=== PATIENT | female | born 1960 | race Caucasian/White ===

== ENCOUNTER 2020-10-20 13:27 | Outpatient (REF) | payer MEDICAID, SELFPAY ==
--- NOTE | ~2020-10-20 | MM_ITS ---
EXAMINATION: MM DIAGNOSTIC DIGITAL BREAST TOMOSYNTHESIS, BILATERAL CLINICAL INFORMATION: Due for yearly. Also follow-up asymmetric density lower left breast initially noted at baseline exam. The lifetime risk of breast cancer based on the Tyrer-Cuzick Model is 5%. COMPARISON: Mammography: 08/19/2019, 01/23/2019, 05/17/2018, 05/02/2018 (baseline, BI-RADS 0). TECHNIQUE: Digital breast tomosynthesis is performed in both the craniocaudal and mediolateral oblique views along with computer-aided detection (CAD). Synthesized 2D images are generated from the tomosynthesis. FINDINGS: There are scattered areas of fibroglandular density (ACR BI-RADS breast composition Category b). There is fibronodular parenchymal pattern with scattered bilateral asymmetries similar to prior studies. There is no developing density or interval mass or architectural abnormality. The area of follow-up inferior left breast in MLO view is stable to less conspicuous since initial baseline imaging. No abnormal calcifications. The axilla and skin contours are unremarkable. Results are provided to the patient at time of visit by the technologist. MM/MM tomosynthesis diagnostic BI IMPRESSION: No significant changes from prior exams. ASSESSMENT: BI-RADS 2: Benign RECOMMENDATION: Routine annual mammography screening. This patient's information was entered into a reminder system with a target due date for their next mammogram.
== END 2020-10-20 13:28 | disposition home or self-care (01) ==
LOC: HO.MAMMO 13:27
PROVIDERS: PCP Internal Medicine; Visit Provider Internal Medicine
DX: R92.2 Inconclusive mammogram (principal)
CPT/HCPCS: 77062; 77066

== ENCOUNTER 2022-06-14 09:23 | Emergency (ER) | payer MEDICAID, SELFPAY ==
--- NOTE | ~2022-06-14 | CT_ITS ---
EXAMINATION: CT ABDOMEN AND PELVIS WITHOUT CONTRAST CLINICAL INFORMATION: Abdominal pain and hematuria. Kidney stones? COMPARISON: Abdomen ultrasound from 11/18/2019 TECHNIQUE: Multidetector volumetric imaging was performed from the superior aspect of the liver through the pubic symphysis. Sagittal and coronal reformatted images were obtained on the technologist's workstation. This CT examination was performed using dose optimization techniques as appropriate, variously including the following: *Automated exposure control *Adjustment of mA and/or kV according to patient size (this includes techniques or standardized protocols for targeted exams where dose is matched to indication/reason for exam; i.e. extremities or head) *Use of iterative reconstruction technique DLP: 658 mGy-cm FINDINGS: LUNG BASES: No pulmonary consolidation or pleural effusion. Coronary artery and thoracic aorta atherosclerotic calcification. LIVER: The liver has normal size, shape, and attenuation. No evidence of liver mass. GALLBLADDER AND BILIARY TREE: Gallbladder is without radiopaque stones, wall thickening or pericholecystic fluid. No dilated bile ducts. PANCREAS: Normal. No edema, pancreatic ductal dilatation or mass. SPLEEN: Normal. ADRENAL GLANDS: Normal. KIDNEYS AND URETERS: Kidneys are normal in size. 1 cm cyst of the lateral right kidney has a simple appearance on these noncontrast images. It was visualized on the ultrasound exam from 11/18/2019. No renal imaging follow-up is recommended for a simple cyst. 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 There are punctate calcifications of the kidneys. No large renal stone. No ureteral calculi, hydronephrosis or perinephric edema. BLADDER: Normal. No calculi or wall thickening. BOWEL AND PERITONEUM: Stomach is unremarkable. No dilated loops of bowel. The appendix is normal. There is a diverticulum of the distal descending colon without evidence of diverticulitis. No overt bowel wall thickening or mesenteric fat stranding. No free fluid or pneumoperitoneum. ABDOMINAL WALL: Unremarkable. VASCULATURE: Atherosclerosis of the abdominal aorta. The infrarenal abdominal aorta measures up to 2.6 cm maximum transverse and AP diameter. LYMPH NODES: No pathologic sized lymph nodes in the abdomen or pelvis. No inguinal lymphadenopathy. PELVIC VISCERA: A contraceptive device is present within the endometrium. No uterine or adnexal mass. No pelvic free fluid. SKELETAL: Transitional lumbosacral anatomy. Facet arthropathy of the lower lumbar spine. Minimal anterolisthesis is observed at the two lower lumbar levels. Chondrocalcinosis of the spine and pubic symphysis. No suspicious bone lesions. CT/CT abdomen pelvis wo IV con IMPRESSION: * No acute imaging abnormalities in the abdomen or pelvis. * Mild medullary nephrocalcinosis. No ureteral stones or hydronephrosis. * A contraceptive device is positioned within the endometrium.
[2022-06-14 09:29] VITALS: BP 176/61; PULSE 67; RESP 20; TEMP 36.4; O2SAT 100; BMI 37.6
[2022-06-14 09:57] LABS: Appearance Urine Clear; Color Urine Yellow; Glucose Urine UA Negative (Negative); Leukocyte Esterase Urine Negative (Negative); Nitrite Urine Negative (Negative); PH 6.5 (5.0-9.0); Specific Gravity - Urine <= 1.005 (1.005-1.025); UMIC TRIGGER UACC YES; Urine Blood Small (1+) (Negative); Urine Ketones Negative (Negative); Urine Protein Negative (Neg-Trace)
[2022-06-14 10:14] LABS: Bacteria Urine None Seen (None Seen); Hyaline Casts Urine 0-2 /LPF (0-2); Squamous Epithelial Cell Urine 0-2 /HPF (0-2); WBC Urine 0-5 /HPF (0-5)
[2022-06-14 11:49] VITALS: BP 156/63; PULSE 58; RESP 16; O2SAT 98
[2022-06-14 12:48] LABS: MANUAL DIFF FLAG NO
[2022-06-14 12:49] LABS: Basophils Percent Auto 0.2 % (0-2); Eosinophils Absolute Auto 0.2 X10*3/uL (0.0-0.4); Eosinophils Percent Auto 1.6 % (0-4); Hematocrit 42.8 % (37.0-47.0); Hemoglobin 13.6 g/dl (12.0-16.0); Imm Gran Abs Auto 0.03 X10*3/uL (0.00-0.03); Imm Gran Pct Auto 0.3 % (0.0-0.4); Lymphocytes Absolute Auto 2.7 X10*3/uL (1.2-4.9); Lymphocytes Percent Auto 26.9 % (20-40); Mean Corpuscular HGB Conc 31.8 g/dl (31.0-35.0); Mean Corpuscular Hemoglobin 29.8 pg (27.0-33.0); Mean Corpuscular Volume 93.7 fL (80.0-98.0); Mean Platelet Volume 10.4 fL (9.4-12.3); Monocytes Absolute Auto 0.6 X10*3/uL (0.1-1.2); Monocytes Percent Auto 6.4 % (2-11); Neutrophils Absolute Auto 6.4 x10*3/uL (2.0-8.3); Neutrophils Percent Auto 64.6 % (45-73); Platelet Count 249 X10*3/uL (160-400); Red Blood Count 4.57 X10*6/uL (4.20-5.50); White Blood Count 9.9 X10*3/uL (4.8-10.8)
[2022-06-14 13:08] LABS: Alanine Aminotransferase 17 U/L (0-31); Albumin Level 4.2 g/dL (3.5-5.0); Alkaline Phosphatase 128 U/L (39-117); Anion Gap 17 (12-20); Aspartate Amino Transferase 16 U/L (5-31); Bilirubin Total 0.6 mg/dL (0.0-1.0); Blood Urea Nitrogen 14 mg/dL (9-16); Calcium 9.7 mg/dL (8.4-10.2); Carbon Dioxide 26 mmol/L (22-29); Chloride 107 mmol/L (96-108); Creatinine Clr Calc Pharmacy 72.1; Estimated Glomerular Filt Rate > 60; Glucose Random 97 mg/dL (60-115); Potassium 5.1 mmol/L (3.3-5.1); Sodium 145 mmol/L (135-145); Total Protein 7.2 g/dL (6.5-8.0)
--- NOTE | 2022-06-14 14:44 | ED.FEMALEGU ---
HPI - Female Genitourinary General Chief complaint: Urogenital-Female Stated complaint: Abd pain Time Seen by Provider: 06/14/22 11:54 Source: patient Mode of arrival: ambulatory Limitations: no limitations History of Present Illness HPI Narrative: 61-year-old female presents to ED for left lower quadrant suprapubic abdominal pain she states radiating to vaginal area feels like pressure. Patient denies any dysuria, hematuria, flank pain, fever, chills, vaginal lesions, vaginal bleeding, vaginal discharge. Patient denies any flank pain any recent trauma. Related Data Previous Rx's Medication Instructions Recorded ketorolac 10 mg tablet 10 mg PO QID PRN pain 5 days #20 06/14/22 tabs Allergies Allergy/AdvReac Type Severity Reaction Status Date / Time No Known Allergies Allergy Unverified 04/23/20 19:29 [No Known Allergies*] none Allergy Unknown Uncoded 08/29/18 00:00 Review of Systems Review of Systems: Lower extremity pain radiating down the vaginal area. Yes all other systems are reviewed and are negative [facility] Past Medical History Medical History (Updated 06/14/22 @ 15:47 by ALBERTA Avila) Anxiety Depression HTN (hypertension) Hypercholesteremia Social History Social History Alcohol intake: current Alcohol intake frequency: a few times a month Smoked in Last 30 Days: Yes Use of substances other than those prescribed or required for medical reasons: No Advance Directives: No Advance Directives Information Provided: Yes Patient : No Physical Exam Vital Signs: Vital Signs: Last Vital Signs Temp 97.6 F 06/14/22 09:29 Pulse 58 06/14/22 11:49 Resp 16 06/14/22 11:49 BP 156/63 H 06/14/22 11:49 Pulse Ox 98 06/14/22 11:49 O2 Del Method 06/14/22 11:49 BMI result Body Mass Index 37.6 Const: General: cooperative, healthy appearing, comfortable, no acute distress, well developed and alert Orientation/consciousness: oriented to person, oriented to place, oriented to time and patient oriented x3 HEENT: Head: Yes normal to inspection, Yes No palpable skull fracture present, Yes normocephalic, Yes atraumatic and No abrasion Eyes: General: appearance normal, both eyes and all related structures Neck: Neck: Yes normal visual inspection and Yes full ROM Chest: Chest palpation & inspection: normal inspection of the chest and normal palpation of entire chest wall Resp: Effort & Inspection: normal respiratory effort and not able to speak in complete sentences Auscultation: clear to auscultation bilaterally, no crackles, no rales, no rhonchi and no wheezes Cardio: Jugular venous distension: no JVD Heart sounds: S1 normal heart sound present and S2 normal heart sound present GI: Inspection: Yes normal to inspection and No abdominal wall ecchymosis Palpation (GI): Soft to palpation, not firm, Tenderness to palpation present (GI) in the LLQ and suprapubicly, no guarding and not rigid : General: No CVA tenderness and Yes no CVA tenderness Back/Spine/Pelvis: Back: no CVA tenderness, No CVA tenderness and No back tenderness Skin: General skin exam: no rashes or lesions noted and elasticity normal Neuro: General: oriented to person, oriented to place, oriented to time, patient oriented x3, gait normal and CN's II-XI intact bilaterally Extrem: General: Yes normal to inspection and Yes full ROM Psych: Appearance: grossly normal, well kempt and not disheveled Course Course Course Narrative: Urine has blood was sent for CT scan to make sure there is no kidney stone. Labs will be ordered. Reevaluation(s) Reevaluation #1: Labs shows normal kidney stones no white blood cell count. Negative for kidney stones. but shows IUP. To talk to patient states she had IUD in place for over 30 years. It was placed in [place] Time: 14:50 Reevaluation #2: Dr. Jin spoke with Dr. Garcia before states IUD can still be removed after 30 years. Also recommended chlamydia gonorrhea swab ordered. Pelvic exam was done and there was attempt to remove IUD with forceps but was not successful. patient no longer wanted a second attempt. Patient will follow-up with outpatient guinea pig breeder. NOt Suspecting perforation from IUD. CT scan normal Medications Administered Discontinued Medications Generic Name Dose Route Start Last Admin Trade Name Freq PRN Reason Stop Dose Admin Ketorolac Tromethamine 30 mg 06/14/22 15:11 06/14/22 15:18 Ketorolac Tromethamine 30 Mg/Ml Vial IM 06/14/22 15:12 30 mg ONCE ONE Administration MDM - Female Genitourinary MDM Narrative Medical decision making narrative: Abdominal pain Lab Data Result diagrams: 06/14/22 12:40 06/14/22 12:40 Labs: Lab Results 06/14/22 06/14/22 06/14/22 Range/Units 09:39 12:40 12:40 WBC 9.9 (4.8-10.8) X10*3/uL RBC 4.57 (4.20-5.50) X10*6/uL Hgb 13.6 (12.0-16.0) g/dl Hct 42.8 (37.0-47.0) % MCV 93.7 (80.0-98.0) fL MCH 29.8 (27.0-33.0) pg MCHC 31.8 (31.0-35.0) g/dl RDW 15.0 (11.0-16.0) % Plt Count 249 (160-400) X10*3/uL MPV 10.4 (9.4-12.3) fL Immature Gran % (Auto) 0.3 (0.0-0.4) % Neut % (Auto) 64.6 (45-73) % Lymph % (Auto) 26.9 (20-40) % [place] % (Auto) 6.4 (2-11) % Eos % (Auto) 1.6 (0-4) % Baso % (Auto) 0.2 (0-2) % Lymph # (Auto) 2.7 (1.2-4.9) X10*3/uL [place] # (Auto) 0.6 (0.1-1.2) X10*3/uL Eos # (Auto) 0.2 (0.0-0.4) X10*3/uL Baso # (Auto) 0.0 (0.0-0.2) X10*3/uL Abs Immat Gran (auto) 0.03 (0.00-0.03) X10*3/uL Absolute Neuts (auto) 6.4 (2.0-8.3) x10*3/uL Absolute Nucleated RBC 0.000 (0.0-0.012) X10*3/uL Nucleated RBC % (auto) 0.0 (0.0-0.2) /100WBC Sodium 145 (135-145) mmol/L Potassium 5.1 (3.3-5.1) mmol/L Chloride 107 (96-108) mmol/L Carbon Dioxide 26 (22-29) mmol/L Anion Gap 17 (12-20) BUN 14 (9-16) mg/dL Creatinine 0.73 (0.5-1.4) mg/dL Estim Creat Clear Calc 72.1 Estimated GFR > 60 Random Glucose 97 (60-115) mg/dL Calcium 9.7 (8.4-10.2) mg/dL Total Bilirubin 0.6 (0.0-1.0) mg/dL AST 16 (5-31) U/L ALT 17 (0-31) U/L Alkaline Phosphatase 128 H (39-117) U/L Total Protein 7.2 (6.5-8.0) g/dL Albumin 4.2 (3.5-5.0) g/dL Urine Color Yellow Urine Appearance Clear Urine pH 6.5 (5.0-9.0) Ur Specific [place] <= 1.005 (1.005-1.025) Urine Protein Negative (Neg-Trace) mg/dL Urine Glucose (UA) Negative (Negative) mg/dL Urine Ketones Negative (Negative) mg/dL Urine Blood Small (1+) H (Negative) Urine Nitrite Negative (Negative) Ur Leukocyte Esterase Negative (Negative) Urine RBC 3-5 H (0-2) /HPF Urine WBC 0-5 (0-5) /HPF Ur Squamous Epith Cells 0-2 (0-2) /HPF Urine Bacteria None Seen (None Seen) Hyaline Casts 0-2 (0-2) /LPF Discharge Plan Discharge Clinical Impression: Abdominal pain Patient Disposition: Home, Self-Care Instructions: Abdominal Pain (ED) Additional Instructions: Palomino an?lisis de veronica y tomograf?a computarizada resultaron normales y negativos para cualquier etiolog?a aguda. La orina sali? negativa para infecci?n. El intento de retirar el DIU se purcell realizado nemesio m?s de 30 a?os sin ?xito. Necesitar? un seguimiento con el proveedor de OBGYN. regrese al servicio de urgencias de inmediato por dolor abdominal, n?useas, v?mitos, fiebre, escalofr?os, dolor en el costado, flujo vaginal, sangrado vaginal, disuria, hematuria o cualquier otro s?ntoma preocupante. Prescriptions: New ketorolac 10 mg tablet 10 mg PO QID PRN (Reason: pain) 5 Days Qty: 20 0RF Rx Instructions: Received Toradol 30mg IM in the ED. [place] [facility] [place] [place] [place] (Embedded IUD) Print Language: [place]se
[2022-06-14] MEDS: Ketorolac Tromethamine 30 MG/ML VIAL IM (15:18)
--- NOTE | 2022-06-14 15:19 | PC.NURSE ---
Pelvic exam performed by Milton PINZON with this RN at bedside. Attempted to remove IUD, patient very uncomfortable, unable to remove IUD at this time. Patient medicated with Toradol IM.
[2022-06-14 18:45] LABS: CT PCR NOT DETECTED (Not Detect.); NG PCR NOT DETECTED (Not Detect.)
== END 2022-06-14 17:00 | disposition home or self-care (01) ==
PROVIDERS: Physician Assistant; Emergency Provider Emergency Medicine; PCP Internal Medicine
DX: R10.32 Left lower quadrant pain (principal); I10 Essential (primary) hypertension; E78.00 Pure hypercholesterolemia, unspecified
CPT/HCPCS: 36415; 74176; 80053; 81001; 85025; 87491; 87591; 96372; 99284; J1885

== ENCOUNTER 2023-09-01 08:13 | Outpatient (REF) | payer MEDICAID, SELFPAY ==
[2023-09-01 14:29] LABS: MANUAL DIFF FLAG NO
[2023-09-01 14:49] LABS: Basophils Percent Auto 0.3 % (0-2); Eosinophils Absolute Auto 0.1 X10*3/uL (0.0-0.4); Eosinophils Percent Auto 2.3 % (0-4); Hematocrit 42.6 % (37.0-47.0); Hemoglobin 13.6 g/dl (12.0-16.0); Imm Gran Abs Auto 0.01 X10*3/uL (0.00-0.03); Imm Gran Pct Auto 0.2 % (0.0-0.4); Lymphocytes Absolute Auto 2.1 X10*3/uL (1.2-4.9); Mean Corpuscular HGB Conc 31.9 g/dl (31.0-35.0); Mean Corpuscular Hemoglobin 30.5 pg (27.0-33.0); Mean Corpuscular Volume 95.5 fL (80.0-98.0); Mean Platelet Volume 11.4 fL (9.4-12.3); Monocytes Absolute Auto 0.4 X10*3/uL (0.1-1.2); Monocytes Percent Auto 7.2 % (2-11); Neutrophils Absolute Auto 3.4 x10*3/uL (2.0-8.3); Platelet Count 247 X10*3/uL (160-400); Red Blood Count 4.46 X10*6/uL (4.20-5.50); White Blood Count 6.1 X10*3/uL (4.8-10.8)
[2023-09-01 14:55] LABS: Alanine Aminotransferase 25 U/L (0-31); Albumin Level 4.2 g/dL (3.5-5.0); Alkaline Phosphatase 106 U/L (39-117); Anion Gap 16 (12-20); Aspartate Amino Transferase 17 U/L (5-31); Bilirubin Total 0.5 mg/dL (0.0-1.0); Blood Urea Nitrogen 17 mg/dL (9-16); Calcium 10.3 mg/dL (8.4-10.2); Carbon Dioxide 26 mmol/L (22-29); Chloride 104 mmol/L (96-108); Cholesterol 250 mg/dL (<200); Estimated Glomerular Filt Rate > 60; Glucose Random 96 mg/dL (60-115); HDL Cholesterol 54 mg/dL (>40); LDL Cholesterol Calculated 166 mg/dL (<100); Potassium 4.3 mmol/L (3.3-5.1); Sodium 142 mmol/L (135-145); Total Protein 7.4 g/dL (6.5-8.0); Triglycerides 151 mg/dL (<150)
[2023-09-01 15:10] LABS: TSH reflex Free T4 1.02 uIU/mL (0.32-4.0)
[2023-09-04 04:19] LABS: ~HepC Num1 0.06 S/CO (0.00-0.79); ~Hepatitis C Antibody Nonreactive (Nonreactive)
[2023-09-04 04:37] LABS: HIV AB/AG Nonreactive (Nonreactive); HIV Num 1 0.04 S/CO (0.00-0.99)
== END 2023-09-01 08:14 | disposition home or self-care (01) ==
LOC: HO.CHCLDS 08:13
PROVIDERS: Visit Provider Internal Medicine
DX: Z00.00 Encounter for general adult medical examination without abnormal findings (principal); E78.00 Pure hypercholesterolemia, unspecified; I10 Essential (primary) hypertension; F32.3 Major depressive disorder, single episode, severe with psychotic features
CPT/HCPCS: 36415; 80053; 80061; 84443; 85025; 86803; 87389

== ENCOUNTER 2023-09-05 15:30 | Outpatient (REF) | payer MEDICAID, SELFPAY ==
[2023-09-12 04:38] LABS: HPV mRNA E6/E7 rflx Not Detected (Not Detected)
== END 2023-09-05 15:31 | disposition home or self-care (01) ==
LOC: HO.CHCLNP 15:30
PROVIDERS: Visit Provider Advanced Practice Midwife
DX: Z01.419 Encounter for gynecological examination (general) (routine) without abnormal findings (principal)
CPT/HCPCS: 87624; 88142

== ENCOUNTER 2023-10-03 09:50 | Outpatient (AMB) | payer MEDICAID, SELFPAY ==
--- NOTE | 2023-10-03 09:54 | A.OFFVIS_ITS ---
Intake Vital Signs 10/03/23 09:56 Height 4 ft 10 in Weight 184 lb BMI 38.5 BP 126/70 Intake Visit Reasons: IUD problems/PCP referral Sign Painter Apprentice Required: Yes Sign Painter Apprentice Language: Manager Drug Safety Name: Isa HERNANDEZ Information Interpreted: non-clinical & clinical Graphic Production Artist: Graphic Production Artist Present (Isa HERNANDEZ) Accompanied by: Self / Same As Patient Allergies No Known Allergies [No Known Allergies*] Allergy (Unverified 10/03/23 09:58) none Allergy (Unknown, Uncoded 10/03/23 09:58) none Is last menstrual period known: Yes Last menstrual period: 06/04/20 Post menopausal: Yes Patient : No Do you need a note to return to daycare/school/sports/work: Yes (for surgery on monday) HPI HPI Comments History of Present Illness Details Presenting for IUD removal. Patient had IUD inserted [address] scan IUD was seen in utero [facility] Medical History Hypercholesteremia Depression Anxiety HTN (hypertension) Family History Father Diabetes Mother Diabetes Social History Household Members Other:: Daughter/ grandson Alcohol intake: current Alcohol intake frequency: a few times a month Patient Tobacco Use Status: Current everyday Tobacco user Cigarettes Per Day: 3 Years Smoked: 30 Current occupational status: disabled Sexually active: No Sexual orientation: Straight/Heterosexual Gender identity: Female Female Reproductive History Menstrual Date of last menstrual period: 06/04/20 Total pregnancies: 2 Full term: 2 Review of Systems Const All systems reviewed & are unremarkable except as noted in HPI and below Card Reports as per HPI and Reports no additional complaints Resp Reports as per HPI and Reports no additional complaints GI Reports as per HPI and Reports no additional complaints Reports as per HPI Physical Exam Vital Signs: Last Vital Signs BP 126/70 10/03/23 09:56 BMI result Body Mass Index 38.5 Const General: cooperative, healthy appearing and comfortable Resp Effort & Inspection: normal respiratory effort Auscultation: clear to auscultation bilaterally Percussion: percussion normal Cardio Palpation: normal PMI Rate: regular rate Rhythm: regular rhythm Heart sounds: no murmurs and no rubs Peripheral pulses: Peripheral pulses 2+ throughout GI Inspection: Yes normal to inspection Palpation (GI): Soft to palpation, nontender, no guarding, not rigid and No hepatosplenomegaly present Percussion: Yes normal to percussion Auscultation: normal bowel sounds Rectal Exam - Female: deferred General: Yes no CVA tenderness External Female Exam: normal external appearance and normal appearance of the urethra Speculum Exam - Vagina: normal appearance of the vagina, normal palpation, no lesions and no masses Speculum Exam - Cervix: normal appearance of the cervix, normal palpation, no lesions, no masses, nontender and Other cervical findings present (No IUD string seen) Bimanual exam- vagina & uterus: normal bimanual exam, normal palpation, uterine size normal, normal palpation, uterine shape normal, No Cervical tenderness present and non-tender Bimanual Exam- Adnexa, other: normal adnexae Back/Spine/Pelvis Back: no CVA tenderness Assessment & Plan Assessment & Plan (1) IUD strings lost: Code(s): T83.32XA - Displacement of intrauterine contraceptive device, initial encounter Plan: Attempted IUD removal, the patient is could not tolerated, the procedure was aborted, recommended hysteroscopic IUD removal under anesthesia. Will proceed with hysteroscopy IUD removal. Discussed with the patient the procedure , all benefits and risks including but not limited to inability to complete the procedure , insufficient endometrial tissue for a complete evaluation of the endometrial cavity , bleeding, infection, possible need for blood transfusion with all its risk ( HIV,syphilis, Hepatitis, anaphylaxis shock, others..), injury to bladder, rectum, possible need for laparoscopy/laparotomy or hysterectomy. The patient verbalized understanding and signed the consent. Instructions given the patient to schedule a 2 week postoperative appointment Coding Level of Care Code New Pt Level 3 (81047) Diagnoses IUD strings lost T83.32XA
[2023-10-03 09:56] VITALS: BP 126/70; BMI 38.5
== END 2023-10-03 10:55 | disposition home or self-care (01) ==
PROVIDERS: PCP Internal Medicine; Visit Provider Obstetrics & Gynecology
DX: T83.32XA Displacement of intrauterine contraceptive device, initial encounter (principal)
CPT/HCPCS: 99203

== ENCOUNTER → 2023-10-03 09:50 | Outpatient (BNVA) | payer MEDICAID, SELFPAY | PROVIDERS: PCP Internal Medicine; Visit Provider Obstetrics & Gynecology | DX: T83.32XA Displacement of intrauterine contraceptive device, initial encounter (principal) | CPT/HCPCS: 99202 ==

== ENCOUNTER 2023-11-03 11:02 | Day surgery (SDC) | payer MEDICAID, SELFPAY ==
[2023-10-17 15:33] VITALS: BMI 38.5
--- NOTE | 2023-11-01 14:25 | P.CONAN_ITS ---
HPI - Anesthesia Eval Consult details Narrative: 63yo F for Hysteroscopy Removal of Uterine Device PMFSH Active Problems Active Problems: All Active Problems (Updated 10/03/23 @ 10:19 by Sumit Garcia MD) IUD strings lost (Acute) Past Medical History Medical History Hypercholesteremia Depression Anxiety HTN (hypertension) Family History Family History Father Diabetes Mother Diabetes Surgical History Surgical History H/O colonoscopy Social History Social History Household Members Other:: Daughter/ grandson Alcohol intake: current Alcohol intake frequency: holidays/special occasions on ly Patient Tobacco Use Status: Current everyday Tobacco user Tobacco use type: Cigarette Cigarettes Per Day: 6 Years Smoked: 30 Current occupational status: disabled Sexual orientation: Straight/Heterosexual Gender identity: Female Meds Allergies Allergy/AdvReac Type Severity Reaction Status Date / Time No Known Allergies Allergy Unverified 10/03/23 09:58 [No Known Allergies*] Home Medications Medication Instructions Recorded Confirmed Last Taken Type benztropine 1 mg tablet 1 mg PO BID 10/03/23 10/17/23 Unknown History buspirone 15 mg tablet 15 mg PO TID anxiety 10/03/23 10/17/23 Unknown History hydroxyzine HCl 25 mg tablet 25 - 50 mg PO DAILY panic attack 10/03/23 10/17/23 Unknown History prazosin 5 mg capsule 15 mg PO BEDTIME 10/03/23 10/17/23 Unknown History risperidone 0.5 mg tablet 0.5 mg PO BID 10/03/23 10/17/23 11/03/23 History risperidone 4 mg tablet 4 mg PO BEDTIME 10/03/23 10/17/23 Unknown History sertraline 100 mg tablet 200 mg PO QAM depressive disorder 10/03/23 10/17/23 11/03/23 History atorvastatin 40 mg tablet 40 mg PO QAM cholesterol 10/17/23 10/17/23 11/03/23 History losartan 100 1 tab PO QAM blood pressure 10/17/23 10/17/23 Unknown History mg-hydrochlorothiazide 12.5 mg tablet Exam Height,Weight and Vital Signs: Height 4 ft 10 in Weight 83.461 kg Assessment and Plan Assessment Anesthesia Assessment: Chart Reviewed
[2023-11-03] VITALS (8 sets, daily range): BP systolic 88–146; BP diastolic 48–72; PULSE 59–79; RESP 14–20; TEMP 36.1–36.6; O2SAT 94–99; BMI 43.0
[2023-11-03] MEDS: Lactated Ringers 1,000 ML 100 ML IVCONT (12:24)
--- NOTE | 2023-11-03 12:52 | P.CONAN_ITS ---
[facility] Active Problems Active Problems: All Active Problems (Updated 10/03/23 @ 10:19 by Sumit Garcia MD) IUD strings lost (Acute) Past Medical History Medical History Hypercholesteremia Depression Anxiety HTN (hypertension) Functional capacity: independent ambulation Patient : No Family History Family History Father Diabetes Mother Diabetes Family history of problems with anesthesia: No Surgical History Surgical History H/O colonoscopy History of Problems with Anesthesia: No Social History Social History Household Members Other:: Daughter/ grandson Alcohol intake: current Alcohol intake frequency: holidays/special occasions only Patient Tobacco Use Status: Current everyday Tobacco user Tobacco use type: Cigarette Cigarettes Per Day: 6 Years Smoked: 30 Use of substances other than those prescribed or required for medical reasons: No Are you DNR?: No Advance Directives: No Advance Directives Information Provided: Yes Current occupational status: disabled Sexual orientation: Straight/Heterosexual Gender identity: Female Meds Allergies Allergy/AdvReac Type Severity Reaction Status Date / Time No Known Allergies Allergy Unverified 10/03/23 09:58 [No Known Allergies*] Active Medications: Current Medications Lactated Ringer's (Lr) 1,000 mls @ 100 mls/hr IVCONT .Q10H KALEE Last Admin: 11/03/23 12:24 Dose: 100 mls/hr Home Medications Medication Instructions Recorded Confirmed Last Taken Type benztropine 1 mg tablet 1 mg PO BID 10/03/23 10/17/23 Unknown History buspirone 15 mg tablet 15 mg PO TID anxiety 10/03/23 10/17/23 Unknown History hydroxyzine HCl 25 mg tablet 25 - 50 mg PO DAILY panic attack 10/03/23 10/17/23 Unknown History prazosin 5 mg capsule 15 mg PO BEDTIME 10/03/23 10/17/23 Unknown History risperidone 0.5 mg tablet 0.5 mg PO BID 10/03/23 10/17/23 11/03/23 History risperidone 4 mg tablet 4 mg PO BEDTIME 10/03/23 10/17/23 Unknown History sertraline 100 mg tablet 200 mg PO QAM depressive disorder 10/03/23 10/17/23 11/03/23 History atorvastatin 40 mg tablet 40 mg PO QAM cholesterol 10/17/23 10/17/23 11/03/23 History losartan 100 1 tab PO QAM blood pressure 10/17/23 10/17/23 Unknown History mg-hydrochlorothiazide 12.5 mg tablet Exam Height,Weight and Vital Signs: Height 4 ft 10 in Weight 93.44 kg Last Vital Signs Temp 97.6 F 11/03/23 12:07 Pulse 76 11/03/23 12:07 Resp 18 11/03/23 12:07 BP 146/72 H 11/03/23 12:07 Pulse Ox 96 11/03/23 12:07 O2 Del Method Room Air 11/03/23 12:07 Airway Mallampati Class: II TM Dist: >3cm Neck ROM: Full Heart: RRR Lungs: CTA Assessment and Plan Assessment Anesthesia Assessment: Anesthesia Plan Discussed Final Anesthetic Review Family History of Problems with Anesthesia: No History of Problems with Anesthesia: No NPO: Yes ASA Class: II Final Preanesthetic Review: Meds/Allgs Chart Reviewed, Consent Obtained/Reviewed and Anes Risks/Benef Reviewed Patient Risk: Low Procedure Risk: Low Anesthetic Plan Anesthetic Plan: GA Disposition: Standard PACU
--- NOTE | 2023-11-03 13:04 | MHC.SHP ---
Pre-Procedural Eval Section A - 24 Hr Update-Section A only Date of Service: 11/03/23 The patient is an INPATIENT: No Changes since office visit: No Cold of Flu in the past 2 weeks, No New Medical Problems, No Changes in Medication and No Patient answered all questions The patient has been examined within 24 hours of the surgical procedure. The History & Physical has been completed within 30 days and I have reviewed it.: Yes Section B - Complete if H&P > 30 days Chief Complaint: Displacement of intrauterine contraceptive device, Allergies: Allergies Allergy/AdvReac Type Severity Reaction Status Date / Time No Known Allergies Allergy Unverified 10/03/23 09:58 [No Known Allergies*] Plan Diagnosis/Plan: Unchanged I have reviewed the history and physical and performed a pertinent physical examination on my patient. No changes have occurred unless specified. Time Spent With Patient Time: Total time managing care of this patient today ____ minutes.
--- NOTE | 2023-11-03 13:29 | PC.NURSE ---
charging machine operator present for both surgical and anesthesia consents.
--- NOTE | 2023-11-03 13:56 | PM.OP ---
Brief Operative Note Date of Service: 06/19/20 Pre-op diagnosis: IUD complication, lost string Post-op diagnosis: same Procedure: Hysteroscopic IUD removal Surgeon: Sumit Garcia MD Anesthesia: MAC Was an Carpenter Helper used for this Procedure?: No Estimated blood loss (mL): 0 Pathology: other (IUD) Condition: stable Disposition: PACU
--- NOTE | 2023-11-03 13:57 | P.OP_ITS ---
Operative Note Operative Note Date of Service: 11/03/23 Narrative: Preop Diagnosis: IUD complication, lost string Operation: Diagnostic Hysteroscopic IUD removal Post Op Diagnosis: same. IUD and string in utero QBL: Minimal Anesthesia: MAC Surgeon: Sumit Garcia MD Clean Rice Grader And Reel Tender: None Complication: None Pathology: IUD Procedure: The patient was put in the dorsal lithotomy position, scrubbed, and draped in the usual manner. A sterile speculum was inserted in the patient's vagina. The anterior lip of the cervix was grasped with a single tooth tenaculum. The cervix was dilated up to 5 mm, then the scope was inserted in the patient's uterus. Inspection revealed IUD & its string in utero. A hysteroscopic grasper was introduced through the operative channel, the string grasped and IUD pulled out of the uterine cavity with no complications. At the end of the procedure, all instruments were taken out of the patient uterine and vaginal cavity. The single tooth tenaculum was removed and homeostasis was assured using pressure. The patient tolerated the procedure well and was transferred to the PACU in a stable condition.
--- NOTE | 2023-11-03 14:25 | HO.POSTANES ---
Post Anesthesia Evaluation Post Anesthesia Evaluation Date of Service: 11/03/23 Vital Signs: Vital Signs Temp Pulse Resp BP Pulse Ox O2 Del Method O2 Flow Rate 11/03/23 14:15 79 18 102/48 L 96 Simple Mask 2 11/03/23 14:10 66 16 97/51 L 99 Simple Mask 6 11/03/23 14:05 72 18 106/59 L 97 Simple Mask 6 11/03/23 14:00 97.8 F 59 20 88/52 L 96 Simple Mask 6 11/03/23 12:07 97.6 F 76 18 146/72 H 96 Room Air Anesthesia: General LMA Mental Status: Awake Pain Control: Satisfactory Nausea/Vomiting: None Hydration: Adequate Anesthesia-Related Issues: No Anes. Related Issues
== END 2023-11-03 15:35 | disposition home or self-care (01) ==
PROVIDERS: Visit Provider Obstetrics & Gynecology
PROC: 0UJD8ZZ Inspection of Uterus and Cervix, Via Natural or Artificial Opening Endoscopic (ICD-10-PCS; CPT 58555; principal; 2023-11-03 14:30)
DX: T83.32XA Displacement of intrauterine contraceptive device, initial encounter (principal); Y76.8 Miscellaneous obstetric and gynecological devices associated with adverse incidents, not elsewhere classified; Y92.9 Unspecified place or not applicable; I10 Essential (primary) hypertension; E78.00 Pure hypercholesterolemia, unspecified; F32.A Depression, unspecified; F41.1 Generalized anxiety disorder; F17.210 Nicotine dependence, cigarettes, uncomplicated; Z79.899 Other long term (current) drug therapy
CPT/HCPCS: 58562; 88300; J1100; J1885; J2250; J2405; J2704; J3010

== ENCOUNTER → 2023-11-03 11:02 | Outpatient (BNV) | payer MEDICAID, SELFPAY | PROVIDERS: Visit Provider Obstetrics & Gynecology | DX: T83.32XA Displacement of intrauterine contraceptive device, initial encounter (principal) | CPT/HCPCS: 58562 ==

== ENCOUNTER 2023-11-21 10:47 | Outpatient (AMB) | payer MEDICAID, SELFPAY ==
[2023-11-21 10:52] VITALS: BP 130/60
--- NOTE | 2023-11-21 10:52 | MHC.OFFVIS ---
Intake Vital Signs 11/21/23 10:52 Height 4 ft 10 in BP 130/60 Intake Visit Reasons: post op Restaurant Line Cook Required: Yes Restaurant Line Cook Language: Furnace Attendant Name: sIa Information Interpreted: non-clinical & clinical Allergies No Known Allergies [No Known Allergies*] Allergy (Unverified 10/03/23 09:58) HPI HPI Comments History of Present Illness Details The patient is presenting post hysteroscopic IUD removal with no complaints minimal vaginal bleeding no feverishness chills or abdominal pain. PFSH Medical History Hypercholesteremia Depression Anxiety HTN (hypertension) Surgical History H/O colonoscopy Family History Father Diabetes Mother Diabetes Social History Household Members Other:: Daughter/ grandson Alcohol intake: current Alcohol intake frequency: holidays/special occasions only Patient Tobacco Use Status: Current everyday Tobacco user Tobacco use type: Cigarette Cigarettes Per Day: 6 Years Smoked: 30 Current occupational status: disabled Sexual orientation: Straight/Heterosexual Gender identity: Female Review of Systems Const All systems reviewed & are unremarkable except as noted in HPI and below Reports as per HPI and Reports no additional complaints GI Reports no additional complaints Reports no additional complaints Physical Exam Vital Signs: Last Vital Signs BP 130/60 11/21/23 10:52 Assessment & Plan Assessment & Plan (1) IUD strings lost: Comment: Status post hysteroscopic IUD removal Code(s): T83.32XA - Displacement of intrauterine contraceptive device, initial encounter Plan: Discussed with the patient the intraoperative finding, the patient was reassured, all questions answered, the patient verbalized understanding. Coding Level of Care Code Est Pt Level 3 (65291) Diagnoses IUD strings lost T83.32XA
== END 2023-11-21 11:00 | disposition home or self-care (01) ==
LOC: HO.HWS 10:47
PROVIDERS: Visit Provider Obstetrics & Gynecology
DX: T83.32XA Displacement of intrauterine contraceptive device, initial encounter (principal)
CPT/HCPCS: 99213

== ENCOUNTER → 2023-11-21 10:47 | Outpatient (BNVA) | payer MEDICAID, SELFPAY | PROVIDERS: Visit Provider Obstetrics & Gynecology | DX: T83.32XD Displacement of intrauterine contraceptive device, subsequent encounter (principal) | CPT/HCPCS: 99212 ==

== ENCOUNTER 2024-01-23 09:21 | Outpatient (REF) | payer MEDICAID, SELFPAY | END 2024-01-23 09:22 | disposition home or self-care (01) | LOC: HO.MAMMO 09:21 | PROVIDERS: PCP Internal Medicine; Visit Provider Advanced Practice Midwife | DX: Z12.31 Encounter for screening mammogram for malignant neoplasm of breast (principal) | CPT/HCPCS: 77063; 77067 ==

== ENCOUNTER → 2024-01-23 09:45 | Outpatient (BNV) | payer MEDICAID, SELFPAY | PROVIDERS: PCP Internal Medicine; Visit Provider Radiology Diagnostic Radiology | DX: Z12.31 Encounter for screening mammogram for malignant neoplasm of breast (principal) | CPT/HCPCS: 77063; 77067 ==

== ENCOUNTER 2024-12-03 08:09 | Outpatient (REF) | payer MEDICAID, SELFPAY ==
--- OUTSIDE RECORDS SUMMARY | 2024-12-03 08:25 | XMS_ITS | Encounter Summary ---
Author Organization [email or web address] Address [address] [facility] [address] [place] [address] Care Team Providers Care Lineman Apprentice Name Role Phone Kendra Sosa MD Primary Care Provider [phone] Hussein Yoon Unavailable Unavailable Reason for Visit * Reason Comments Med Refill Encounter Details Date Type Department Care Team (Late st Contact Info) Description 01/26/2024 Refill [facility] [address] [place] [address] Hussein Yoon FNP Major depressive disorder with psychotic features (CMS/HCC) Social History Tobacco Use Types Packs/Day Years Used Date Smoking Tobacco: Every Day Cigarettes 0.3 40 Smokeless Tobacco: Current Alcohol Use Standard Drinks/Week Comments Never 0 (1 standard drink = 0.6 oz pur e alcohol) Alcohol Answer Date Recorded How often do you have a drink containing alcohol ? 2 07/19/2022 How many drinks containing a lcohol do you have on a typical day when you are drinking? 0 07/19/2022 How often do you have six or more drinks on one occasion? 0 07/19/2022 Depression Answer Date Recorded Patient Health Questionnaire-9 Score 6 01/29/2024 Patient Health Questionnaire-9 Score 6 01/29/2024 Last PHQ-9: Questionnaire Data Not on file 0 01/29/2024 Depression Answer Date Recorded Patient Health Questionnaire-2 Score 2 01/29/2024 Comments No Sex and Gender Information Value Date Recorded Sex Assigned at Female 06/06/2022 10:33 AM EDT Legal Sex Female 10:33 AM EDT Gender Identity Female 06/06/2022 10:33 AM EDT Sexual Orientation Choose not to disclose 2021 10:33 AM EDT documented as of this encounter Plan of Treatment Upcoming Encounters Date Type Department Care Team (Late st Contact Info) Description 12/19/2024 2:30 PM EDT Office Visit [facility] [address] [place] [address] Kendra Sosa MD [address] [place] [address] documented as of this encounter Goals Goal Patient Goal Type Associated Problems Recent Progress Patient-Stated? Author Blood Pressure < 140/90 Blood Pressure 151/80(2024 11:01 AM EST) No DellogonoYemi, PharmD Smoking cessation General No DellogonoYemi, PharmD documented as of this encounter Visit Diagnoses Diagnosis Major depressive disorder with psychotic features (CMS/HCC) documented in this encounter Additional Health Concerns Assessment Noted Time PHQ-9 Depression Total Score: 7 11/23/19 24 2:00 PM EDT documented as of this encounter Care Teams Lineman Apprentice Relationship Specialty Start Date End Date Kendra Sosa MD [address] [place] [address] PCP - General Internal Medicine 12/29/17 Hussein Yoon FNP [address] [place] [address] Nurse Practitioner Family Medicine 07/11/23 Kandi Delarosa Casing PullerEmployee Wellness/Fitness Coordinator 10/12/23 documented as of this encounter
--- OUTSIDE RECORDS SUMMARY | 2024-12-03 08:25 | XMS_ITS | Encounter Summary ---
Author Organization [employer] Address [address] [facility] [address] [place] [address] Care Team Providers Care Coke Crusher Operator Name Role Phone Kendra Sosa MD Primary Care Provider [phone] Hussein Yoon Unavailable Unavailable Encounter Details Date Type Department Care Team ([facility] Contact Info) Description 09/01/2022 Abstract [facility] [address] [place] [address] Kendra Sosa MD [address] [place] [address] Social History Tobacco Use Types Packs/Day Years Used Date Smoking Tobacco: Every Day Cigarettes 0.3 40 Smokeless Tobacco: Current Alcohol Answer Date Recorded How often do you have a drink containing alcohol ? 2 07/19/2022 How many drinks containing a lcohol do you have on a typical day when you are drinking? 0 07/19/2022 How often do you have six or more drinks on one occasion? 0 07/19/2022 Comments Unknown Sex and Gender Information Value Date Recorded Sex Assigned at Female 06/06/2022 10:33 AM EDT Legal Sex Female 10:33 AM EDT Gender Identity Female 06/06/2022 10:33 AM EDT Sexual Orientation Choose not to disclose 2021 10:33 AM EDT documented as of this encounter Plan of Treatment Upcoming Encounters Date Type Department Care Team ([facility] Contact Info) Description 12/19/2024 2:30 PM EDT Office Visit [facility] [address] [place] [address] Kendra Sosa MD [address] [place] [address] documented as of this encounter Visit Diagnoses Not on filedocumented in this encounter Additional Health Concerns Assessment Noted Time PHQ-9 Depression Total Score: 7 08/02/20 22 3:12 PM EST documented as of this encounter Care Teams Coke Crusher Operator Relationship Specialty Start Date End Date Kendra Sosa MD [address] [place] [address] PCP - General Internal Medicine 12/29/17 Hussein Yoon FNP [address] [place] [address] Nurse Practitioner Family Medicine 07/11/23 Kandi Delarosa Manager Marketing SalesStore Facility Technician 10/12/23 documented as of this encounter
--- OUTSIDE RECORDS SUMMARY | 2024-12-03 08:25 | XMS_ITS | Encounter Summary ---
Author Organization [employer] Address [address] [facility] [address] [place] [address] Care Team Providers Care Sheep Herder Name Role Phone Kendra Sosa MD Primary Care Provider [phone] Hussein Yoon Unavailable Unavailable Encounter Details Date Type Department Care Team (Late st Contact Info) Description 05/31/2023 Abstract [facility] [address] [place] [address] Kendra Sosa MD [address] [place] [address] Social History Tobacco Use Types Packs/Day Years [...] Answer Date Recorded Patient Health Questionnaire-9 Score 9 05/29/2023 Patient Health Questionnaire-9 Score 9 05/29/2023 Last PHQ-9: Questionnaire Data Not on file 1 Depression Answer Date Recorded Patient Health Questionnaire-2 Score 2 05/29/2023 Comments Unknown Sex and Gender Information Value [...] Description 12/19/2024 2:30 PM EDT Office Visit [facility] [address] [place] [address] Kendra Sosa MD [address] [place] [address] documented as of this encounter Goals Goal Patient Goal Type Associated Problems Recent Progress Patient-Stated? Author Blood Pressure < 140/90 Blood Pressure 151/80(2024 11:01 AM EST) No Dellogono, Yemi, PharmD Smoking cessation General No DellogonoJohnsonis, PharmD documented as of this encounter Procedures Procedure Name Priority Date/Time Associated Diagnosis Comments COLONOSCOPY Routine 01/24/2019 documented in this encounter Results * Hm Colonoscopy (01/24/2019) Colonoscopy Normal Normal Narrative Shasha Queen - 01/24/2019 Recommended 10 year follow up us Historical Provider HEALTH MAINTENANCE Edited Result - Final documented in this encounter Visit Diagnoses Not on filedocumented in this encounter Additional Health Concerns Assessment Noted Time PHQ-9 Depression Total Score: 9 05/29/20 23 1:39 PM EDT documented as of this encounter Care Teams Sheep Herder Relationship Specialty Start Date End Date Kendra Sosa MD [address] [facility] [place] [address] PCP - General Internal Medicine 12/29/17 Hussein Yoon FNP [address] [facility] [place] [address] Nurse Practitioner Family Medicine 07/11/23 Kandi Delarosa Livestock FarmerElectrophysiology Technician 10/12/23 documented as of this encounter
--- OUTSIDE RECORDS SUMMARY | 2024-12-03 08:25 | XMS_ITS | Clinical Summary ---
Author Organization [employer] Address [address] [facility] [address] [place] [address] Care Team Providers Care Assembler Ping Pong Table Name Role Phone Kendra Sosa MD Primary Care Provider [phone] Hussein Yoon Unavailable Unavailable Allergies No known active allergies Medications acetaminophen (Tylenol) 500 MG tablet Take 2 tablets by mouth every 8 (eight) hours. Take 2 tablets by mouth every 8 (eight) hours as needed Active Blood Pressure kit Active nicotine (Nicotrol) 10 MG inhalerIndicatio ns:Tobacco dependence Use 6-16 times daily as needed for cravings 42 each 11 3 Active Additional Information Patient not taking.Reported on 12/19/2023 nicotine (Nicoderm CQ) 14 MG/24HR patchIndications :Smoking Place 1 patch on the skin 1 (one) time each day at the same time. 30 patch 4 Active nicotine polacrilex (Nicotine Mini) 2 MG lozengeIndicatio ns:Smoking Dissolve 1 lozenge (2 mg) in the mouth if needed for smoking cessation. 100 lozenge 4 Active busPIRone (Buspar) 15 MG tabletIndication s:Major depressive disorder with psychotic features (CMS/HCC) Take 1 tablet (15 mg) by mouth 3 times daily. 270 tablet 3 4 Active hydrOXYzine HCl (Atarax) 25 MG tabletIndication s:Major depressive disorder with psychotic features (CMS/HCC) Take 2 tablets orally at bedtime, and every 8 hours as needed for panic attack 270 tablet 3 4 Active prazosin (Minipress) 5 MG capsuleIndicatio ns:Major depressive disorder with psychotic features (CMS/HCC) Take 3 capsules (15 mg) by mouth at bedtime. 270 capsule 3 4 Active risperiDONE (RisperDAL) 4 MG tabletIndication s:Major depressive disorder with psychotic features (CMS/HCC) Take 1 tablet (4 mg) by mouth at bedtime. 90 tablet 3 4 Active sertraline (Zoloft) 100 MG tabletIndication s:Major depressive disorder with psychotic features (CMS/HCC) Take 2 tablets (200 mg) by mouth Once per day. 180 tablet 3 4 Active atorvastatin (Lipitor) 40 MG tabletIndication s:Hypercholester olemia TAKE ONE TABLET EVERY MORNING (CHOLESTEROL) 30 tablet 11 5 Active losartan-hydroCH LOROthiazide (Hyzaar) 100-12.5 MG tabletIndication s:Primary hypertension TAKE ONE TABLET EVERY MORNING (FOR BLOOD PRESSURE) 90 tablet 3 5 Active Active Problems Problem Noted Date Diagnosed Date Major depressive disorder with psychotic feature s 08/02/2022 Assessment & Plan (01/29/2024 2:58 PM EDT): Continues doing well, without hallucinations or severe anxiety. She will continue Risperidone 4 mg at bedtime, Prazosin 5 mg 3 at bedtime, Sertraline 100 mg 2 daily, Buspirone 15 mg TID, and Hydroxyzine 25 mg 2 at bedtime and q 8 h prn. She is awaiting counseling intake. Although she is stable and doing well, she is on a complex medication regimen and patient herself would like to be referred to new [facility] psychiatric prescriber. She is aware these will be televisits, and the provider will not be an employee of [facility]. She gives consent to share PHI. Any issues or concerns, contact [facility]. All her questions were answered and I have wished her well. She agrees with the plan. Assessment & Plan (11/23/2023 2:38 PM EDT): Again doing well, without hallucinations or severe anxiety. She has no reported S/E of psychiatric medications and at this time she will stop the Benztropine. If notices any change, specifically develops abnormal movements, may resume the Benztropine and/or call us. Continue other medications as usual: Risperidone 4 mg at bedtime, Prazosin 5 mg 3 at bedtime, Sertraline 100 mg 2 daily, Buspirone 15 mg TID, and Hydroxyzine 25 mg 2 at bedtime and q 8 h prn. We will give her the phone number so she can F/U on referral for counseling. On 05/29/2023 provider informed the patient that I would be retiring. Meanwhile F/U with me in 2 months. She agrees with the plan. Assessment & Plan (07/24/2023 3:29 PM EST): C/O increased anxiety. Med monitoring shows apparent missing multiple medications. Resending all now. Continue Risperidone 4 mg at bedtime, Benztropine 1 mg BID, Prazosin 5 mg 3 at bedtime, Sertraline 100 mg 2 daily, Buspirone 15 mg TID, and Hydroxyzine 25 mg 2 at bedtime and q 8 h prn. She no longer has contact with therapist. Will refer again. On 05/29/2023 provider informed the patient that I would be retiring within the next year or so. F/U with me in 2 months. She agrees with the plan. Assessment & Plan (05/29/2023 2:34 PM EDT): Still doing well emotionally. The restless legs could possibly be r/t her psychiatric medications but the differential is broad. She will F/U with PCP. If she develops abnormal movements affecting other areas, particularly mouth, face, neck, please be sure to let me know right away. Will continue with counseling and current medications: Risperidone 4 mg at bedtime, Benztropine 1 mg BID, Prazosin 5 mg 3 at bedtime, Sertraline 100 mg 2 daily, Buspirone 15 mg TID, and Hydroxyzine 25 mg 2 at bedtime and q 8 h prn. F/U with day program as usual and with me in 2 months. Today 05/29/2023 provider nformed the patient that I would be retiring within the next year or so, and suggested she ask therapist for referral to agency psychiatrist if possible. She agrees with the plan. Assessment & Plan (03/27/2023 2:47 PM EDT): Still doing OK despite impending need to find her own place to live as daughter will be moving to [place] and pt does not want to leave this area. Will continue with counseling and current medications: Risperidone 4 mg at bedtime, Benztropine 1 mg BID, Prazosin 5 mg 3 at bedtime, Sertraline 100 mg 2 daily, Buspirone 15 mg TID, and Hydroxyzine 25 mg 2 at bedtime and q 8 h prn. F/U with day program as usual and with me in 2 months. She agrees with the plan. Assessment & Plan (12/01/2022 11:53 AM EDT): Doing quite well, but would certainly benefit from therapy in addition to her high doses of medications. Will refer again. Meanwhile continue Risperidone 4 mg at bedtime, Benztropine 1 mg BID, Prazosin 5 mg 3 at bedtime, Sertraline 100 mg 2 daily, Buspirone 15 mg TID, and Hydroxyzine 25 mg 2 at bedtime and q 8 h prn. F/U with day program as usual and with me in 2 months. She agrees with the plan. Assessment & Plan (10/04/2022 3:05 PM EST): Not doing as well. Interested in therapy, and we will send her the list of [facility] agencies and [facility] and she can contact to inquire about counseling availability. Continue current medications and attendance at day program. F/U with me in 2 months. She agrees with the plan. Assessment & Plan (08/02/2022 4:02 PM EST): Still doing very well. Continue current medications and attendance at day program. F/U with me in 2 months. She agrees with the plan. Arthritis of knee 06/27/2022 Gastritis 06/27/2022 Herpes labialis 06/27/2022 Hypercholesterolemia 05/26/2021 Chronic pain 01/05/2018 Hypertensive disorder 02/28/2007 Resolved Problems Problem Noted Date Diagnosed Date Resolved Date Anxiety 06/27/2022 08/02/2022 Encounters Date Type Department Care Team Description 11/27/2024 Telephone [facility] [address] [place] [address] Kendra Sosa MD Care Coordination 10/25/2024 Refill [facility] [address] [facility] [place] [address] Kendra Sosa MD Primary hypertension 09/20/2024 Telephone [facility] [address] [facility] [place] [address] Kendra Sosa MD No Show from Last 3 Months Immunizations Name Administration Dates Next Due Influenza Injectable Quadriv alant Preservative Free IIV4 MDCK 05/05/2022 Pfizer Covid-19 Vaccine 12+ 12/15/2020, Tdap 10/01/2019 Zoster, Recombinant 12/29/2021,10/01/2019 Social History Tobacco Use Types Packs/Day Years Used Date Smoking Tobacco: Every Day Cigarettes 0.3 40 Smokeless Tobacco: Current Tobacco Cessation:Ready to Q uit: Yes; Counseling Given: Yes Alcohol Use Standard Drinks/Week Comments Never 0 [...] Questionnaire Data Not on file 0 01/29/2024 Housing Stability Answer Date Recorded What is your housing situation today? I have shanon sing 08/21/[address] you li ve. Do you have problems with any of the following? None of the above 08/21/2024 Food Insecurity Answer Date Recorded Within the past 12 months, y ou worried that your food would run out before you got money to buy more: Never True 08/21/2024 Within the past 12 months,th e food you bought just didn't last and you didn't have enough money to get more: Never True Transportation Answer Date Recorded In the past 12 months, has l ack of transportation kept you from medical appts, meetings, work or from getting things needed for daily living? No 08/21/2024 Utilities Answer Date Recorded In the past 12 months, has t he electric, gas, oil or water company threatened to shut off services in your home? No 08/21/2024 Depression Answer Date Recorded Patient Health Questionnaire-2 Score 2 01/29/2024 Internet Access Answer Date Recorded Internet Access Q1 Yes 08/21/2024 Internet Access Q2 Not on file 08/21/2024 Comments No Sex and Gender Information Value Date Recorded Sex Assigned at Female 06/06/2022 10:33 AM EDT Legal Sex Female 10:33 AM EDT Gender Identity Female 06/06/2022 10:33 AM EDT Sexual Orientation Choose not to disclose 2021 10:33 AM EDT Last Filed Vital Signs Vital Sign Reading Time Taken Comments Blood Pressure 151/80 08/21/2024 11:01 AM EST Pulse 84 08/21/2024 11:01 AM EST Temperature 36.9 ??C (98.5 ??F) 08/21/2024 11:[address] Respiratory Rate 20 08/21/2024 11:01 AM EST Oxygen Saturation 99% 08/21/2024 11:01 AM EST Inhaled Oxygen Concentration - - Weight 83.9 kg (185 lb) 08/21/2024 11:01 AM EST Height 148.6 cm (4' 10.5 ) 08/21/2024 11:[address] Body Mass Index 38.01 08/21/2024 11:01 AM EST Plan of Treatment Upcoming Encounters Date Type Department Care Team (Late st Contact Info) Description 12/19/2024 2:30 PM EDT Office Visit [facility] [address] [place] [address] Kendra Sosa MD [address] [place] [address] Health Maintenance Due Date Last Done Comments CT Colonography 1960 FIT DNA/Cologuard 1960 FIT 1960 FOBT 1960 Sigmoidoscopy 1960 Pneumococcal Vaccine: 50+ Years (1 of 2 - PCV) 1978 COVID-19 Vaccine (4 - season) 2024 09/14/2022, 12/15/2020, 11/24/2020 Influenza Vaccine (#1) 2024 05/05/2022 Depression Screening 01/28/2025 01/29/2024, 01/29/20 Alcohol/Substance Use Screening 08/21/2025 08/21/2024 SDOH Screening 08/21/2025 08/21/2024 Tobacco Screening 08/21/2025 08/21/2024 Mammogram 01/22/2026 01/23/2024, 10/05, 10/20/2020, Additional history exists Pap Smear 09/05/2026 09/05/2023 Lipid Panel 09/01/2028 09/01/2023, 05/03/2021 Cervical Cancer Screening 09/05/2028 HPV/Cotest 09/05/2028 09/05/2023, 04/10/2018 Colonoscopy 01/24/2029 01/24/2019 Colorectal Cancer Screening 01/24/2029 DTaP/Tdap/Td Vaccines (2 - Td or Tdap) 10/01/2029 10/01/2019 RSV Patients and Patients Aged 60 years or older (1 - 1-dose 75+ series) 2034 Zoster Vaccines Completed 12/29/2021, 10/01/2019 Hepatitis C Screening Completed 09/01/2023 HIB Vaccines Aged Out No longer eligi ble based on patient's age to complete this topic HPV Vaccines Aged Out No longer eligi ble based on patient's age to complete this topic Hepatitis A Vaccines Aged Out No long er eligible based on patient's age to complete this topic Hepatitis B Vaccines Aged Out No long er eligible based on patient's age to complete this topic IPV Vaccines Aged Out No longer eligi ble based on patient's age to complete this topic Meningococcal Vaccine Aged Out No katherine evelyn eligible based on patient's age to complete this topic RSV under 20 months Aged Out No longe r eligible based on patient's age to complete this topic Rotavirus Vaccines Aged Out No longer eligible based on patient's age to complete this topic Goals Goal Patient Goal Type Associated Problems Recent Progress Patient-Stated? Author Blood Pressure < 140/90 Blood Pressure 151/80(2024 11:01 AM EST) No Yemi Mirza PharmD Smoking cessation General No Yemi Mirza PharmD Procedures Procedure Name Priority Date/Time Associated Diagnosis Comments BI MAMMOGRAM SCREENING TOMOSYNTHESIS BILATERAL Urgent 01/23/2024 9:45 AM EDT Breast cancer screening by mammogram HPV MRNA E6/E7 REFLEX TO HPV 16, 18/45 Routine 09/05/2023 10:48 AM EST Hypercholesterolem ia PAP SMEAR Routine 09/05/2023 10:48 AM EST Cervical cancer screening HEPATITIS C AB W/REFL TO HCV RNA, QN, PCR Routine 09/01/2023 8:16 AM EST Annual physical exam LIPID PANEL, STANDARD Routine 09/01/2023 8:16 AM EST Hypercholesterolem ia HM COLONOSCOPY Routine 01/24/2019 from Last 3 Months or Most Recently Relevant to Health Maintenance Results * BI Mammogram Screening Tomosynthesis Bilateral (01/23/2024 9:45 AM EDT) Anatomical Region Laterality Modality Breast Bilateral Mammography 01/23/2024 9:45 AM EDT Narrative 01/23/2024 1:26 PM EDT ? [facility] [place] ? [address] ?[place] [address] ? Mammography Report ? Signed ? Patient: Graeme Chen,Dorothea ?MR#: ?? [id number] ? : 1960 ?Acct:[id number] ? Age/Sex: 63 / F ?ADM Date: 06/18/24 ? Loc: HO.MAMMO ? Attending Dr: Ivana Abarca CNM ? Ordering Physician: IVANA ABARCA CNM ?Results: 1 ?? Negative ? Date of Service: 01/23/24 ?Follow Up: 1 Year From Orig ?? inal Mammogram ? Procedure(s): MM tomosynthesis screening BI ?? Accession Number(s): [id number] ? cc: Kendra Sosa MD; IVANA ABARCA CNM ? EXAMINATION: ?? MM SCREENING DIGITAL BREAST TOMOSYNTHESIS, BILATERAL ? CLINICAL INFORMATION: ? Screening. Asymptomatic. ? COMPARISON: ?? Mammography: This study is compared with prior exams dating back to ?? 2018. ? TECHNIQUE: ?? Digital breast tomosynthesis is performed in both the craniocaudal and ?? mediolateral oblique views along with computer-aided detection (CAD). ?? Synthesized 2D images are generated from the tomosynthesis. ? FINDINGS: ?? The breasts are heterogeneously dense, which may obscure small masses ?? (ACR BI-RADS breast composition Category c). ? There are no significant masses, abnormal calcifications, or other ?? abnormalities. ? MM/MM tomosynthesis screening BI ?? IMPRESSION: ?? No mammographic evidence of malignancy. ? ASSESSMENT: ? BI-RADS BI-RADS 1 - Negative ? RECOMMENDATION: ?? Routine annual mammography screening. ? 1 year F/U ? This examination should not preclude the clinical evaluation of a ?? suspicious palpable abnormality. ? This patient's information was entered into a reminder system with a ?? target due date for their next mammogram. ? Dictated By: ?Anna Ziegler MD ? Signed By: ?<Electronically signed by Anna Ziegler MD in OV> ? 01/23/24 1322 ? DD/ 0945 ? TD/TT: ? Site Project Manager: ? Procedure Note Donotuseinterpreter, Image - [facility] [address] [place] [address] Mammography Report Signed Patient: Chandni RutledgeR#: [id number] : 1960Acct:[id number] Age/Sex: 63 / FADM Date: 01/23/24 Loc: [facility] Attending Dr: Ivana Abarca CNM Ordering Physician: IVANA ABARCAesults: 1 Negative Date of Service: 01/23/24Follow Up: 1 Year From Orig inal Mammogram Procedure(s): MM tomosynthesis screening BI Accession Number(s): [id number] cc: Kendra Sosa MD; IVANA ABARCA CNM EXAMINATION: MM SCREENING DIGITAL BREAST TOMOSYNTHESIS, BILATERAL CLINICAL INFORMATION: Screening. Asymptomatic. COMPARISON: Mammography: This study is compared with prior exams dating back to 2018. TECHNIQUE: Digital breast tomosynthesis is performed in both the craniocaudal and mediolateral oblique views along with computer-aided detection (CAD). Synthesized 2D images are generated from the tomosynthesis. FINDINGS: The breasts are heterogeneously dense, which may obscure small masses (ACR BI-RADS breast composition Category c). There are no significant masses, abnormal calcifications, or other abnormalities. MM/MM tomosynthesis screening BI IMPRESSION: No mammographic evidence of malignancy. ASSESSMENT: BI-RADS BI-RADS 1 - Negative RECOMMENDATION: Routine annual mammography screening. 1 year F/U This examination should not preclude the clinical evaluation of a suspicious palpable abnormality. This patient's information was entered into a reminder system with a target due date for their next mammogram. Dictated By: Anna Ziegler MD Signed By: <Electronically signed by Anna Ziegler MD in OV> 01/23/24 1322 DD/ 0945 TD/TT: Site Project Manager: Ivana Abarca CNM IMG BI PROCEDURES Final R esult * HPV mRNA E6/E7 w/Reflex to HPV Genotypes 16, 18/45 (09/05/2023 10:48 AM EST) HPV nRNA E6/E7 Not Detected Not Detected [facility] Comment:Methodology: Transcr iption-Mediated AmplificationThis assay detects E6/E7 viral messenger RNA (mRNA) from 14high-risk HPV types (16,18,31,33,35,39,45,51,52,56,58,59,66,68).Cervical sources are required for HPV testing.If a vaginal source from a patient who has had atotal hysterectomy with removal of cervix wassubmitted, please contact the testing laboratoryfor alternative testing options.For additional information, please refer [email or web address](This link if provided for information/educational purposes only.)THIS TEST WAS PERFORMED AT:[employer] [place] [phone] BARNETT MD HPV mRNA E6/E7 [facility] HPV 16 RNA [facility] HPV 18/45 RNA [facility] 09/05/2023 10:4 8 AM EST 09/07/2023 9:50 AM EST Ivana Abarca CNM LAB CYTOLOGY ORDERABLES F inal Result [facility] [address] [place], [place] [phone] * Pap Smear (09/05/2023 10:48 AM EST) Swab Cervix uteri structure / Unknown 09/05/2023 10:48 AM EST 09/07/2023 9:50 AM EST Narrative [facility] - 09/20/2023 6:58 AM EST ----- ------- Name: Dorothea Rutledge ?Age/Sex: 62/F ? : 1960 Unit#: [id number] ?? Attend Dr: IVANA ABARCA CNM ?Re09/05/23 ?Status: DEP REF ? Location: HO.CHCLNP ? Disch: ? ----- ------- SPEC : [id number] ? RECD: 09/07/23 ? STATUS: ??SOUT ? REQ NUM: [id number] ? SOHAN: 09/05/23-1047 ? SUBM DR: IVANA ABARCA CNM ? ENTERED: ??09/07/23-1117 ?SP TYPE: Pap Smr ?OTHR : ? ORDERED: ??Pap Smear ? Interpretation ?? Satisfactory for evaluation. ?? No endocervical cells seen. ?? Cytolysis noted. ?? Negative for intraepithelial lesion or malignancy. ?HPV mRNA E6/E7: ?NOT DETECTED ? This assay detects E6/E7 viral messenger RNA (mRNA) from 14 high-risk HPV types (16, 18, ?? 31, 33, 35, 39, 45, 51, 52, 56, 58, 59, 66, 68) ?? HPV testing performed by [employer], [place], [place]. ??See reference laboratory ?? portion of the EMR for entire report. ?Clinical Information LMP: Unknown date Previous PAP test: Unknown date/findings ? Material Received ?? ThinPrep-Cervical ----- ------- Signed (signature on file) DUANE Jeter (ASCP) 09/20/23 0658 ? ----- ------- ? END OF REPORT ? us Ivana Abarca [facility] CYTOLOGY ORDERABLES F inal Result Performing Organization Address [facility] Co de Phone Number [facility] [address] [place] [address] [phone] * Hepatitis C Antibody with Reflex to HCV, RNA, Quantitative, Real-Time PCR (09/01/2023 8:16 AM EST) Hepatitis C Antibody Nonreactive Nonreactive [facility] Comment:Antibodies to HCV no t detected; does not exclude early acuteHCV infection. Blood Venous blood specimen / Unknown 09/01/2023 8:16 AM EST 09/01/2023 2:29 PM EST us Kendra Sosa MD LAB BLOOD ORDERABLES Final Result Performing Organization Address [facility] Co de Phone Number [facility] [address] [place] [address] [phone] * (ABNORMAL) Lipid Panel, Standard (09/01/2023 8:16 AM EST) Triglycerides 151(H) <150 mg/dL [facility] Comment:Desirable Triglyceri de: less than 150 mg/dLBorderline High Triglyceride 150-199 mg/dLHigh Triglyceride: 200-499 mg/dLVery High Triglyceride: greater than or equal to 5OO mg/dL Cholesterol 250(H) <200 mg/dL [facility] Comment:Desirable Cholestero l: less than 200 mg/dLBorderline High Cholesterol: 200-239 mg/dLHigh Cholesterol: greater than 239 mg/dL LDL Cholesterol Calculated 166(H) <100 mg/dL [facility] Comment:Desirable LDL: less than 100 mg/dLNear Optimal/Above Optimal LDL: 110- 129 mg/dLBorderline High LDL: 130-159 mg/dLHigh LDL: 160-189 mg/dLVery High LDL: greater than or equal to 190 mg/dL HDL Cholesterol 54 >40 mg/dL [facility] Comment:Desirable HDL: great er than 40 mg/dL Note: This HDL assay may give artificially low results in patients with liver disease. Blood Venous blood specimen / Unknown 09/01/2023 8:16 AM EST 09/01/2023 2:29 PM EST us Kendra Sosa MD LAB BLOOD ORDERABLES Final Result [facility] [address] [place] [address] [phone] * Colonoscopy (01/24/2019) Colonoscopy Normal Normal Narrative Shasha Queen - 01/24/2019 Recommended 10 year follow up Historical Provider HEALTH MAINTENANCE Edited Result - Final from Last 3 Months or Most Recently Relevant to Health Maintenance Insurance MEDICARE [address] [place] [address] [place] [id number] [facility] Care Teams Assembler Ping Pong Table Relationship Specialty Start Date End Date Kendra Sosa MD [address] [place] [address] PCP - General Internal Medicine 12/29/17 Hussein Yoon FNP [address] [place] [address] Nurse Practitioner Family Medicine 07/11/23 Kandi Delarosa Manager BranchVocational Teacher 10/12/23
--- OUTSIDE RECORDS SUMMARY | 2024-12-03 08:25 | XMS_ITS | Encounter Summary ---
Author Organization [employer] Address [address] [facility] 7 [place] [address] Care Team Providers Care Fire Operations Forester Name Role Phone Kendra Sosa MD Primary Care Provider [phone] Hussein Yoon Unavailable Unavailable Reason for Visit * Reason Onset Date Comments Durable Medical Equipment 06/20/2024 Encounter Details Date Type Department Care Team ([facility] st Contact Info) Description 06/20/2024 Telephone [facility] [address] [place] [address] Kendra Sosa MD [address] [place] [address] Durable Medical Equipment Social History Tobacco Use Types Packs/Day Years [...] AM EDT documented as of this encounter Miscellaneous Notes * Telephone Encounter - Elda Au - 06/20/2024 9:00 AM EST Tc from pt requesting a callback from PCP or [place], pt indicates she needs bed pads as soon as possible. documented in this encounter Plan of Treatment Upcoming Encounters Date Type Department Care Team (Late st Contact Info) Description 12/19/2024 2:30 PM EDT Office Visit [facility] P[facility] [address] [place] [address] Kendra Sosa MD [address] [place] [address] documented as of this encounter Goals Goal Patient Goal Type Associated Problems Recent Progress Patient-Stated? Author Blood Pressure < 140/90 Blood Pressure 151/80(2024 11:01 AM EST) No Dellogono, Yemi, PharmD Smoking cessation General No DellogonoYemi, PharmD documented as of this encounter Visit Diagnoses Not on filedocumented in this encounter Additional Health Concerns Assessment Noted Time PHQ-9 Depression Total Score: 6 01/28/ 24 2:09 PM EDT documented as of this encounter Care Teams Fire Operations Forester Relationship Specialty Start Date End Date Kendra Sosa MD [address] [place] [address] PCP - General Internal Medicine 12/29/17 Hussein Yoon FNP [address] [place] [address] Nurse Practitioner Family Medicine 07/11/23 Kandi Delarosa Engineer SteamGarnett Feeder 10/12/23 documented as of this encounter
--- OUTSIDE RECORDS SUMMARY | 2024-12-03 08:25 | XMS_ITS | Encounter Summary ---
Author Organization [employer] Address [address] [facility] 7t [place] [address] Care Team Providers Care Sheet Manufacturing Supervisor Name Role Phone Kendra Sosa MD Primary Care Provider +1- [phone] Hussein Yoon Unavailable Unavailable Encounter Details Date Type Department Care Team (Latest Contact Info) Description 09/01/2023 Orders Only [facility] CHC MED & PEDS [address] [place], [place] [phone] Kendra Sosa MD [address] [place] [address] Hypercholesterolemia (Primary Dx) Social History Tobacco Use Types Packs/Day Years [...] Answer Date Recorded Patient Health Questionnaire-9 Score 12 07/26/2023 Patient Health Questionnaire-9 Score 12 07/26/2023 Last PHQ-9: Questionnaire Data Not on file 1 09/26/2022 Depression Answer Date Recorded Patient Health Questionnaire-2 Score 3 07/26/2023 Comments Unknown Sex and Gender Information Value [...] Description 12/19/2024 2:30 PM EDT Office Visit [facility] CHC MED & PEDS [address] [place] [address] Kendra Sosa MD [address] [place] [address] documented as of this encounter Goals Goal Patient Goal Type Associated Problems Recent Progress Patient-Stated? Author Blood Pressure < 140/90 Blood Pressure 151/80(2024 11:01 AM EST) No Yemi Mirza, PharmAlisa Smoking cessation General No Yemi Mirza, Joaquina documented as of this encounter Procedures Procedure Name Priority Date/Time Associated Diagnosis Comments HPV MRNA E6/E7 REFLEX TO HPV 16, 18/45 Routine 09/05/2023 10:48 AM EST Hypercholesterolemi a documented in this encounter Results * HPV mRNA E6/E7 w/Reflex to HPV Genotypes 16, 18/45 (09/05/2023 10:48 AM EST) HPV nRNA E6/E7 Not Detected Not Detected [facility] Comment:Methodology: Transcr iption-Mediated AmplificationThis assay detects E6/E7 viral messenger RNA (mRNA) from 14high-risk HPV types (16,18,31,33,35,39,45,51,52,56,58,59,66,68).Cervical sources are required for HPV testing.If a vaginal source from a patient who has had atotal hysterectomy with removal of cervix wassubmitted, please contact the testing laboratoryfor alternative testing options.For additional information, please refer tohttp://education.Access MediQuip/faq/VRB220p5(This link if provided for information/educational purposes only.)THIS TEST WAS PERFORMED AT:[facility] [place] [phone] BARNETT MD HPV mRNA E6/E7 TNP [facility] HPV 16 RNA [facility] HPV 18/45 RNA [facility] 09/05/2023 10:4 8 AM EST 09/07/2023 9:50 AM EST Maty Mcadams CN LAB CYTOLOGY ORDERABLES F inal Result [facility] [address] [place] [address] [phone] documented in this encounter Visit Diagnoses Diagnosis Hypercholesterolemia- Primary Pure hypercholesterolemia documented in this encounter Additional Health Concerns Assessment Noted Time PHQ-9 Depression Total Score: 12 023 10:18 AM EST documented as of this encounter Care Teams Sheet Manufacturing Supervisor Relationship Specialty Start Date End Date Kendra Sosa MD [address] [place] [address] PCP - General Internal Medicine 12/29/17 Hussein Yoon FNP [address] [place] [address] Nurse Practitioner Family Medicine 07/11/23 Kandi Delarosa Director Of Cloud ServicesSign Shop Supervisor 10/12/23 documented as of this encounter
[2024-12-03 14:17] LABS: Appearance Urine Clear; Color Urine Yellow; Glucose Urine UA Negative (Negative); Leukocyte Esterase Urine Negative (Negative); Nitrite Urine Negative (Negative); Specific Gravity - Urine 1.015 (1.005-1.025); UMIC TRIGGER UACC YES; Urine Blood Small (1+) (Negative); Urine Ketones Negative (Negative); Urine Protein Negative (Neg-Trace)
[2024-12-03 14:25] LABS: MANUAL DIFF FLAG NO
[2024-12-03 14:30] LABS: Basophils Percent Auto 0.3 % (0-2); Eosinophils Absolute Auto 0.2 X10*3/uL (0.0-0.4); Eosinophils Percent Auto 2.1 % (0-4); Hematocrit 45.2 % (37.0-47.0); Hemoglobin 14.4 g/dl (12.0-16.0); Imm Gran Abs Auto 0.03 X10*3/uL (0.00-0.03); Imm Gran Pct Auto 0.4 % (0.0-0.4); Lymphocytes Absolute Auto 3.2 X10*3/uL (1.2-4.9); Lymphocytes Percent Auto 44.2 % (20-40); Mean Corpuscular HGB Conc 31.9 g/dl (31.0-35.0); Mean Corpuscular Hemoglobin 30.1 pg (27.0-33.0); Mean Corpuscular Volume 94.6 fL (80.0-98.0); Mean Platelet Volume 11.2 fL (9.4-12.3); Monocytes Absolute Auto 0.5 X10*3/uL (0.1-1.2); Monocytes Percent Auto 7.6 % (2-11); Neutrophils Absolute Auto 3.3 x10*3/uL (2.0-8.3); Neutrophils Percent Auto 45.4 % (45-73); Platelet Count 229 X10*3/uL (160-400); Red Blood Count 4.78 X10*6/uL (4.20-5.50); White Blood Count 7.2 X10*3/uL (4.8-10.8)
[2024-12-03 14:32] LABS: Bacteria Urine None Seen (None Seen); Hyaline Casts Urine 0-2 /LPF (0-2); RBC Urine 0-2 /HPF (0-2); Squamous Epithelial Cell Urine 0-2 /HPF (0-2); WBC Urine 0-5 /HPF (0-5)
[2024-12-03 14:50] LABS: Alanine Aminotransferase 32 U/L (0-31); Albumin Level 4.3 g/dL (3.5-5.0); Alkaline Phosphatase 117 U/L (39-117); Anion Gap 13 (12-20); Aspartate Amino Transferase 27 U/L (5-31); Bilirubin Total 0.4 mg/dL (0.0-1.0); Blood Urea Nitrogen 20 mg/dL (9-16); Calcium 9.7 mg/dL (8.4-10.2); Carbon Dioxide 29 mmol/L (22-29); Chloride 106 mmol/L (96-108); Cholesterol 178 mg/dL (<200); Estimated Glomerular Filt Rate > 60; Glucose Random 116 mg/dL (60-115); HDL Cholesterol 56 mg/dL (>40); LDL Cholesterol Calculated 99 mg/dL (<100); Potassium 4.5 mmol/L (3.3-5.1); Sodium 143 mmol/L (135-145); Total Protein 7.3 g/dL (6.5-8.0); Triglycerides 117 mg/dL (<150)
[2024-12-03 15:10] LABS: TSH reflex Free T4 2.49 uIU/mL (0.32-4.0)
== END 2024-12-03 08:10 | disposition home or self-care (01) ==
LOC: HO.CHCLDS 08:09
PROVIDERS: Visit Provider Internal Medicine
DX: I10 Essential (primary) hypertension (principal); E78.00 Pure hypercholesterolemia, unspecified; N39.498 Other specified urinary incontinence
CPT/HCPCS: 36415; 80053; 80061; 81001; 84443; 85025

== ENCOUNTER 2025-01-28 08:34 | Outpatient (REF) | payer MEDICAID, SELFPAY ==
--- NOTE | ~2025-01-28 | MM_ITS ---
EXAMINATION: MM SCREENING DIGITAL BREAST TOMOSYNTHESIS, BILATERAL CLINICAL INFORMATION: Screening. Asymptomatic. COMPARISON: Mammography: Comparison is made with available priors TECHNIQUE: Digital breast mammography with tomosynthesis is performed in both the craniocaudal and mediolateral oblique views along with computer-aided detection (CAD). FINDINGS: The breasts are heterogeneously dense, which may obscure small masses (ACR BI-RADS breast composition Category c). Bilateral scattered asymmetries are stable. There are no significant masses, abnormal calcifications, or other abnormalities. MM/MM tomosynthesis screening BI IMPRESSION: No mammographic evidence of malignancy. ASSESSMENT: BI-RADS BI-RADS 2 - Benign Findings RECOMMENDATION: Routine annual mammography screening. 1 year F/U This examination should not preclude the clinical evaluation of a suspicious palpable abnormality. This patient's information was entered into a reminder system with a target due date for their next mammogram. Electronically signed by: Alyssia Boone DO 01/31/2025 05:33 PM EDT
--- OUTSIDE RECORDS SUMMARY | 2025-01-28 08:50 | XMS_ITS | Encounter Summary ---
Author Organization [employer] Address [address] [facility] 7t [place] [address] Care Team Providers Care Chorus Master Name Role Phone Kendra Sosa MD Primary Care Provider +1- [phone] Hussein Yoon Unavailable Unavailable Encounter Details Date Type Department Care Team (Late st Contact Info) Description 05/31/2023 Abstract [facility] MEDICINE [address] [place] [address] Kendra Sosa MD [address] [place] [address] Social History Tobacco Use Types Packs/Day Years [...] Care Team (Late st Contact Info) Description 03/28/2025 2:30 PM EDT Office Visit [facility] MED & PEDS [address] [facility] [place] [address] Kendra Sosa MD [address] [place] [address] documented as of this encounter Goals Goal Patient Goal Type Associated Problems Recent Progress Patient-Stated? Author Blood Pressure < 140/90 Blood Pressure 139/70(2024 2:40 PM EDT) No Dellogono, Yemi, PharmD Smoking cessation General No Dellogono, Yemi, PharmD documented as of this encounter Procedures [...] documented as of this encounter Care Teams Chorus Master Relationship Specialty Start Date End Date Kendra Sosa MD [address] [facility] [place] [address] PCP - General Internal Medicine 12/29/17 Hussein Yoon FNP [address] [facility] [place] [address] Nurse Practitioner Family Medicine 07/11/23 Kandi Delarosa Mower SharpenerBallistic Expert 10/12/23 documented as of this encounter
== END 2025-01-28 08:35 | disposition home or self-care (01) ==
LOC: HO.MAMMO 08:34
PROVIDERS: PCP Internal Medicine; Visit Provider Internal Medicine
DX: Z12.31 Encounter for screening mammogram for malignant neoplasm of breast (principal)
CPT/HCPCS: 77063; 77067

== ENCOUNTER → 2025-01-28 08:45 | Outpatient (BNV) | payer MEDICAID, SELFPAY | PROVIDERS: PCP Internal Medicine; Visit Provider Internal Medicine | DX: Z12.31 Encounter for screening mammogram for malignant neoplasm of breast (principal) | CPT/HCPCS: 77063; 77067 ==

== ENCOUNTER 2025-05-05 08:07 | Outpatient (REF) | payer OTHER, SELFPAY ==
[2025-05-05 14:17] LABS: Appearance Urine Clear; Glucose Urine UA Negative (Negative); PH 6.0 (5.0-9.0); Specific Gravity - Urine 1.020 (1.005-1.025); UMIC TRIGGER UA YES
[2025-05-05 14:37] LABS: Alanine Aminotransferase 26 U/L (0-31); Albumin Level 4.3 g/dL (3.5-5.0); Alkaline Phosphatase 114 U/L (39-117); Aspartate Amino Transferase 25 U/L (5-31); Total Protein 7.2 g/dL (6.5-8.0)
== END 2025-05-05 08:08 | disposition home or self-care (01) ==
LOC: HO.CHCLDS 08:07
PROVIDERS: Visit Provider Internal Medicine
DX: R79.89 Other specified abnormal findings of blood chemistry (principal); R31.29 Other microscopic hematuria
CPT/HCPCS: 36415; 80076; 81001

== ENCOUNTER 2025-07-22 15:30 | Outpatient (REF) | payer OTHER, SELFPAY ==
--- NOTE | ~2025-07-22 | US_ITS ---
EXAMINATION: US KIDNEY BILATERAL HISTORY: Other microscopic hematuria TECHNIQUE: Real-time grayscale ultrasound imaging of the kidneys was performed and images were reviewed. COMPARISON: Correlation is made with a CT of the abdomen without contrast dated 06/14/2022. FINDINGS: Right kidney: The right kidney measures 12.6 x 4.5 x 5.0 cm. The renal pyramids are echogenic, suggestive of medullary sponge kidney. There is a 1.8 x 1.4 x 1.6 cm cyst at the lower pole. There is a 6 x 3 x 5 mm nonobstructing calculus at the upper pole. There is no hydronephrosis. Left Kidney: The left kidney measures 11.6 x 4.6 x 5.0 cm. The renal pyramids are echogenic, suggestive of medullary sponge kidney. There are no masses. There is a 4 x 3 x 4 mm nonobstructing calculus in the interpolar region. There is no hydronephrosis. US/US renal BI IMPRESSION: Findings suggestive of medullary sponge kidney. Bilateral nephrolithiasis as described, without hydronephrosis. Electronically signed by: Philippe Rivas MD 07/23/2025 06:58 AM EST
--- OUTSIDE RECORDS SUMMARY | 2025-07-22 19:41 | XMS_ITS | Encounter Summary ---
Author Organization [employer] Address [address] [facility] 7t [place] [address] Care Team Providers Care Cattle Sticker Name Role Phone Kendra Sosa MD Primary Care Provider [phone]- [phone] Hussein Yoon Unavailable Unavailable Reason for Visit * Reason Onset Date Comments Durable Medical Equipment 06/20/2024 Encounter Details Date Type Department Care Team ([facility] st Contact Info) Description 06/20/2024 Telephone [facility] MEDICINE [address] [place] [address] Kendra Sosa MD [address] [place] [address] Durable Medical Equipment Social History Tobacco Use [...] documented in this encounter Plan of Treatment Not on file documented as of this encounter Goals Goal Patient Goal Type Associated Problems Recent Progress Patient-Stated? Author Blood Pressure < 140/90 Blood Pressure 157/78(2024 9:30 AM EDT) No Dellogono, Yemi, PharmD Smoking cessation General No Dellogono, Yemi, PharmD documented as of this encounter Visit Diagnoses Not on filedocumented in this encounter Additional Health Concerns Assessment Noted Time PHQ-9 Depression Total Score: 6 01/29/20 24 2:09 PM EDT documented as of this encounter Care Teams Cattle Sticker Relationship Specialty Start Date End Date Kendra Sosa MD [address] [place] [address] PCP - General Internal Medicine 12/29/17 Hussein Yoon FNP [address] [place] [address] Nurse Practitioner Family Medicine 07/11/23 Kandi Delarosa Supply Chain BuyerCopy Reader 10/12/23 documented as of this encounter
--- OUTSIDE RECORDS SUMMARY | 2025-07-22 19:41 | XMS_ITS | Encounter Summary ---
Author Organization [employer] Address [address] [facility] 7t [place] [address] Care Team Providers Care Director Of Acquisitions Name Role Phone Kendra Sosa MD Primary Care Provider +1- [phone] Hussein Yoon Unavailable Unavailable Encounter Details Date Type Department Care Team (Latest Contact Info) Description 09/01/2023 Orders Only [facility] CHC MED & PEDS [address] [place], [place] [phone] Kendra Sosa MD [address] [place] [address] Hypercholesterolemia (Primary Dx) Social History Tobacco Use [...] as of this encounter Plan of Treatment Not on file documented as of this encounter Goals Goal Patient Goal Type Associated Problems Recent Progress Patient-Stated? Author Blood Pressure < 140/90 Blood Pressure 157/78(2024 9:30 AM EDT) No Yemi Mirza, PharmD Smoking cessation General No Yemi Mirza, PharmD documented as of this encounter Procedures Procedure Name Priority Date/Time Associated Diagnosis Comments HPV MRNA E6/E7 REFLEX TO HPV 16, 18/45 Routine 09/05/2023 10:48 AM EST Hypercholesterolemi a documented in this encounter Results * HPV mRNA E6/E7 w/Reflex to HPV Genotypes 16, 18/45 (09/05/2023 10:48 AM EST) HPV nRNA E6/E7 Not Detected Not Detected [facility] Comment:Methodology: Transcr iption-Mediated AmplificationThis assay detects E6/E7 viral messenger RNA (mRNA) from 14high-risk HPV types (16,18,31,33,35,39,45,51,52,56,58,59,66,68).Cervical sources are required for HPV testing.If a vaginal source from a patient who has had atotal hysterectomy with removal of cervix wassubmitted, please contact the testing laboratoryfor alternative testing options.For additional information, please refer tohttp://education.Sparkcloud/faq/XHE990n5(This link if provided for information/educational purposes only.)THIS TEST WAS PERFORMED AT:[facility] [place] [id number] BARNETT MD HPV mRNA E6/E7 TNP [facility] HPV 16 RNA [facility] HPV 18/45 RNA [facility] 09/05/2023 10:4 8 AM EST 09/07/2023 9:50 AM EST us Maty JAMESON LAB CYTOLOGY ORDERABLES F inal Result [facility] [address] [place] [address] [place] [phone] documented in this encounter Visit Diagnoses Diagnosis Hypercholesterolemia- Primary Pure hypercholesterolemia documented in this encounter Additional Health Concerns Assessment Noted Time PHQ-9 Depression Total Score: 12 023 10:18 AM EST documented as of this encounter Care Teams Director Of Acquisitions Relationship Specialty Start Date End Date Kendra Sosa MD [address] [place] [address] PCP - General Internal Medicine 12/29/17 Hussein Yoon FNP [address] [place] [address] Nurse Practitioner Family Medicine 07/11/23 Kandi Delarosa Paediatric SurgeonLaw Instructor 10/12/23 documented as of this encounter
--- OUTSIDE RECORDS SUMMARY | 2025-07-22 19:41 | XMS_ITS | Encounter Summary ---
Author Organization [employer] Address [address] [facility] 7t [place] [address] Care Team Providers Care Safety Consultant Name Role Phone Kendra Sosa MD Primary Care Provider [phone]- [phone] Hussein Yoon Unavailable Unavailable Encounter Details Date Type Department Care Team ([facility] st Contact Info) Description 12/13/2024 Orders Only [facility] CHC MED & PEDS [address] [place], [place] [phone] Kendra Sosa MD [address] [place] [address] Abnormal liver function test (Primary Dx); Microscopic hematuria Social History Tobacco Use Types Packs/Day Years [...] your housing situation today? I have shanon rodriguez 08/21/[address] you li [...] the past 12 months, has t he [employer], gas, oil or water [employer] threatened to shut off services in your [...] Procedure Name Priority Date/Time Associated Diagnosis Comments URINALYSIS, COMPLETE (INCLUDES MACRO AND MICRO) Routine 05/05/2025 8:10 AM EDT Abnormal liver function test Microscopic hematuria HEPATIC FUNCTION PANEL Routine 05/05/2025 8:10 AM EDT Abnormal liver function test documented in this encounter Results * (ABNORMAL) Urinalysis Complete (05/05/2025 8:10 AM EDT) Color Urine Dark Yellow [facility] Appearance Urine Clear [facility] PH 6.0 5.0 - 9.0 [facility] Glucose Urine UA Negative Negative mg/dL [facility] Urine Blood Moderate (2+)(A) Negative [facility] Specific [place] - Urine 1.020 1.005 - 1.025 [facility] Urine Protein Trace Neg-Trace mg/dL [facility] Urine Ketones Negative Negative mg/dL [facility] Nitrite Urine Negative Negative [facility] Leukocyte Esterase Urine Small (1+)(A) Negative [facility] RBC Urine >20(A) 0 - 2 /HPF [facility] Urine WBC 6-10(A) 0 - 5 /HPF [facility] Urine Squamous Epithelial Cell 11-20 0 - 2 /HPF [facility] Urine Bacteria 2+ None Seen [facility] Hyaline Casts, Urine 3-5 0 - 2 /LPF [facility] Urine (Urine, Random) 05/05/2025 8:10 AM EDT 05/05/2025 2:10 PM EDT us Kendra Sosa MD LAB URINE ORDERABLES Final Result [facility] [address] [place] [phone] * Hepatic Function Panel (05/05/2025 8:10 AM EDT) Bilirubin, Total 0.3 0.0 - 1.0 mg/dL [facility] Bilirubin, Direct 0.2 0.0 - 0.5 mg/dL [facility] Aspartate Amino Transferase 25 5 - 31 U/L [facility] Alanine Aminotransferase 26 0 - 31 U/L [facility] Total Protein 7.2 6.5 - 8.0 g/dL [facility] Albumin Level 4.3 3.5 - 5.0 g/dL [facility] Alkaline Phosphatase 114 39 - 117 U/L [facility] Blood Venous blood specimen / Unknown 05/05/2025 8:10 AM EDT 05/05/2025 2:07 PM EDT Kendra Sosa MD LAB BLOOD ORDERABLES Final Result [facility] [address] [place] [address] [phone] documented in this encounter Visit Diagnoses Diagnosis Abnormal liver function test- Primary Nonspecific abnormal results of liver function study Microscopic hematuria documented in this encounter Additional Health Concerns Assessment Noted Time PHQ-9 Depression Total Score: 6 01/29/20 2:09 PM EDT documented as of this encounter Care Teams Safety Consultant Relationship Specialty Start Date End Date Kendra Sosa MD [address] [place] [address] PCP - General Internal Medicine 12/29/17 Hussein Yoon FNP [address] [place] [address] Nurse Practitioner Family Medicine 07/11/23 Kandi Delarosa Sanipractic PhysicianHotel Desk Clerk 10/12/23 documented as of this encounter
--- OUTSIDE RECORDS SUMMARY | 2025-07-22 19:41 | XMS_ITS | Encounter Summary ---
Author Organization [employer] Address [address] [facility] 7t [place] [address] Care Team Providers Care Ecology Teacher Name Role Phone Kendra Sosa MD Primary Care Provider +1- [phone] Hussein Yoon Unavailable Unavailable Encounter Details Date Type Department Care Team ([facility] st Contact Info) Description 09/01/2022 Abstract [facility] MED & PEDS [address] [place] [address] Kendra Sosa MD [address] [place] [address] Social History Tobacco Use Types Packs/Day Years [...] on file documented as of this encounter Visit Diagnoses Not on filedocumented in this encounter Additional Health Concerns Assessment Noted Time PHQ-9 Depression Total Score: 7 08/02/20 22 3:12 PM EST documented as of this encounter Care Teams Ecology Teacher Relationship Specialty Start Date End Date Kendra Sosa MD [address] [place] [address] PCP - General Internal Medicine 12/29/17 Hussein Yoon FNP [address] [place] [address] Nurse Practitioner Family Medicine 07/11/23 Kandi Delarosa Mold FinisherWood Heel Fitter Machine 10/12/23 documented as of this encounter
--- OUTSIDE RECORDS SUMMARY | 2025-07-22 19:41 | XMS_ITS | Encounter Summary ---
Author Organization [employer] Address [address] [facility] 7t [place] [address] Care Team Providers Care Premium Representative Name Role Phone Kendra Sosa MD Primary Care Provider [phone] Hussein Yoon Unavailable Unavailable Reason for Visit * Reason Comments Med Refill Encounter Details Date Type Department Care Team (Late st Contact Info) Description 01/26/2024 Refill [facility] MEDICINE [address] [place] [address] Hussein Yoon FNP Major depressive disorder with [...] AM EDT documented as of this encounter Functional Status * Over the past 2 weeks, how often have you been bothered by any of the following problems? Question Answer Date of Assessment Author Patient Health Questionnaire -2 Score 2 01/29/2024 2:09 PM LUIST Eula Mon[place] * How difficult have these problems made it for you to do your work, take care of things at home, or get along with other people? Answer Date of Assessment Author Somewhat difficult 01/29/2024 2:09 PM EDT Cecy Narayanan MA * Over the past 2 weeks, how often have you been bothered by any of the following problems? Question Answer Date of Assessment Author Little interest or pleasure in doing things Several days 01/29/2024 2:09 PM Eula Fung MA Feeling down, depressed, or hopeless Several days 01/29/2024 2:09 PM LUIST Eula Mon[place] MA Trouble falling or staying asleep, or sleeping too much Several days 01/29/2024 2:09 PM Cecy Fung MA Feeling tired or having little energy Several days 01/29/2024 2:09 PM Eula Fung MA Poor appetite or overeating Not at all 01/29/2024 2: 09 PM Cecy Fung MA Feeling bad about yourself - or that you are a failure or have let yourself or your family down Not at all 01/29/2024 2:09 PM Eula Fung MA Trouble concentrating on things, such as reading the newspaper or watching television Several days 01/29/2024 2:09 PM Eula Fung MA Moving or speaking so slowly that other people could have noticed? Or the opposite - being so fidgety or restless that you have been moving around a lot more than usual. Several days 01/29/2024 2:09 PM Eula Fung MA Thoughts that you would be better off or hurting yourself in some way Not at all 01/29/2024 2:09 PM EDT Johann Monroy MA Patient Health Questionnaire-9 Score 6 01/29/2024 2:09 PM EDT Soni Monroy MA documented as of this encounter Plan of Treatment Not on file documented as of this encounter Goals Goal Patient Goal Type Associated Problems Recent Progress Patient-Stated? Author Blood Pressure < 140/90 Blood Pressure 157/78(2024 9:30 AM EDT) No Dellogono, Yemi, PharmD Smoking cessation General No Dellogono, Yemi, PharmD documented as of this encounter Visit Diagnoses Diagnosis Major depressive disorder with psychotic features (CMS/HCC) (HCC) documented in this encounter Additional Health Concerns Assessment Noted Time PHQ-9 Depression Total Score: 7 11/23/19 2:00 PM EDT documented as of this encounter Care Teams Premium Representative Relationship Specialty Start Date End Date Kendra Sosa MD [address] [place] [address] PCP - General Internal Medicine 12/29/17 Hussein Yoon FNP [address] [facility] [place] [address] Nurse Practitioner Family Medicine 07/11/23 Kandi Delarosa System Safety ManagerMortgage Processing Manager 10/12/23 documented as of this encounter
--- OUTSIDE RECORDS SUMMARY | 2025-07-22 19:41 | XMS_ITS | Encounter Summary ---
Author Organization [employer] Address [address] [facility] 7 [place] [address] Care Team Providers Care Steeple Jack Name Role Phone Kendra Sosa MD Primary Care Provider [phone] Hussein Yoon Unavailable Unavailable Reason for Visit * Reason Onset Date Comments Prior Authorization 05/12/2025 Encounter Details Date Type Department Care Team ([facility] Contact Info) Description 05/12/2025 Telephone [facility] CHC MED & PEDS [address] [place] [address] Kendra Sosa MD [address] [place] [address] Prior Authorization Social History Tobacco Use Types Packs/Day Years [...] Answer Date Recorded Patient Health Questionnaire-9 Score 10 05/12/2025 Patient Health Questionnaire-9 Score 10 05/12/2025 Last PHQ-9: Questionnaire Data Not on file 1 Housing Stability Answer Date Recorded What is [...] Answer Date Recorded Patient Health Questionnaire-2 Score 0 05/12/2025 Internet Access Answer Date Recorded Internet Access [...] Answer Date of Assessment Author Patient Health Questionnaire-2 Score 0 01/2025 10:06 AM EDT Kristan Ivan MA * Little interest or pleasure in doing things Answer Date of Assessment Author Not at all 05/12/2025 10:06 AM EDT Corrie Ivan MA * Feeling down, depressed, or hopeless Answer Date of Assessment Author Not at all 05/12/2025 10:06 AM LUIST Corrie Ivan MA * Trouble falling or staying asleep, or sleeping too much Answer Date of Assessment Author More than half the days 05/12/2025 10:06 AM LUIST Kristan Ivan MA * Feeling tired or having little energy Answer Date of Assessment Author More than half the days 05/12/2025 10:06 AM LUIST Kristan Ivan MA * Poor appetite or overeating Answer Date of Assessment Author Several days 05/12/2025 10:06 AM EDT Corrie Ivan MA * Feeling bad about yourself - or that you are a failure or have let yourself or your family down Answer Date of Assessment Author Not at all 05/12/2025 10:06 AM EDT Corrie Ivan MA * Trouble concentrating on things, such as reading the newspaper or watching television Answer Date of Assessment Author Nearly every day 05/12/2025 10:06 AM EDT Kristan Ivan MA * Moving or speaking so slowly that other people could have noticed? Or the opposite - being so fidgety or restless that you have been moving around a lot more than usual. Answer Date of Assessment Author More than half the days 05/12/2025 10:06 AM LUIST Kristan Ivan MA * Thoughts that you would be better off or hurting yourself in some way Answer Date of Assessment Author Not at all 05/12/2025 10:06 AM Corrie Urban MA * Patient Health Questionnaire-9 Score Answer Date of Assessment Author 05/12/2025 10:06 AM LUIST Corrie Ivan MA * How difficult have these problems made it for you to do your work, take care of things at home, or get along with other people? Answer Date of Assessment Author Somewhat difficult 05/12/2025 10:06 AM EDT Kristan Ivan MA documented as of this encounter Miscellaneous Notes * Telephone Encounter - Chuy Vickers - 05/12/2025 12:25 PM EDT Script for _Tirzepatide (Mounjaro) 2.5 MG/0.5ML solution auto-injector _ requires a prior authorization. documented in this encounter Plan of Treatment [...] Assessment Noted Time PHQ-9 Depression Total Score: 10 025 10:06 AM EDT documented as of this encounter Care Teams Steeple Jack Relationship Specialty Start Date End Date Kendra Sosa MD [address] [place] [address] PCP - General Internal Medicine 12/29/17 Hussein Yoon FNP [address] [place] [address] Nurse Practitioner Family Medicine 07/11/23 Kandi Delarosa Passenger BrakemanBaggage Agent 10/12/23 documented as of this encounter
--- OUTSIDE RECORDS SUMMARY | 2025-07-22 19:41 | XMS_ITS | Encounter Summary ---
Author Organization [employer] Address [address] [facility] 7t [place] [address] Care Team Providers Care Polisher Brass Name Role Phone Kendra Sosa MD Primary Care Provider [phone]- [phone] Hussein Yoon Unavailable Unavailable Encounter Details Date Type Department Care Team (Late st Contact Info) Description 05/31/2023 Abstract [facility] MEDICINE [address] [place] [address] Kendra Sosa MD [address] [place] [address] Social History Tobacco Use Types Packs/Day Years [...] 157/78(2024 9:30 AM EDT) No Yemi Mirza, Joaquina Smoking cessation General No Yemi Mirza PharmD documented as of this encounter Procedures [...] documented as of this encounter Care Teams Polisher Brass Relationship Specialty Start Date End Date Kendra Sosa MD [address] [place] [address] PCP - General Internal Medicine 12/29/17 Hussein Yoon FNP [address] [place] [address] Nurse Practitioner Family Medicine 07/11/23 Kandi Delarosa Mucker OperatorSenior Government Program Analyst 10/12/23 documented as of this encounter
--- OUTSIDE RECORDS SUMMARY | 2025-07-22 19:41 | XMS_ITS | Encounter Summary ---
Author Organization [employer] Address [address] [facility] 7t [place] [address] Care Team Providers Care Care Process Manager Name Role Phone Kendra Sosa MD Primary Care Provider [phone] Hussein Yoon Unavailable Unavailable Reason for Referral * Consultation (Routine) - Closed Specialty Diagnoses / Procedures Referred By Anshul lees Referred To Contact Urology Diagnoses Other microscopic hematuria Kendra Sosa MD [address], [place] Phone: tel: fax: Arron Arreola MD [address] [place] [address] Drive [address] [place] [address] Phone: tel: fax: Referral ID Status Reason Start Date Expiration Date V isits Requested Visits Authorized [id number] Closed Specialty Services Required 05/05/2025 05/05/2026 1 1 * Imaging (Routine) - Authorized Specialty Diagnoses / Procedures Referred By Contac t Referred To Contact Radiology Diagnoses Other microscopic hematuria Procedures US RENAL BI Kendra Sosa MD [address] [place] [address] Phone: tel: fax: [facility] [address] [place] [address] Phone: tel: fax: Referral ID Status Reason Start Date Expiration Date V isits Requested Visits Authorized [id number] Authorized 05/05/2025 05/05/2026 1 1 Encounter Details Date Type Department Care Team (Late st Contact Info) Description 05/05/2025 Orders Only [facility] [address] [place] [address] Kendra Sosa MD [address] [place] [address] Other microscopic hematuria (Primary Dx) Social History Tobacco Use Types [...] is your housing situation today? I have shanondeneen rodriguez 08/21/[address] you [...] as of this encounter Plan of Treatment Scheduled Orders Name Type Priority Associated Diagnoses Orde r Schedule US RENAL BI Imaging Routine Other microscopic hematuria Expected: 05/05/2025, Expires: 05/05/2026 Scheduled Referrals Name Type Priority Associated Diagnoses Orde r Schedule Referral to Urology Outpatient Referral Routine Other microscopic hematuria Expected: 05/05/2025 (Approximate), Expires: 05/05/2026 documented as of this encounter Goals Goal Patient Goal Type Associated Problems Recent Progress Patient-Stated? Author Blood Pressure < 140/90 Blood Pressure 157/78(2024 9:30 AM EDT) No Dellogono, Yemi, PharmD Smoking cessation General No Dellogono, Yemi, PharmD documented as of this encounter Visit Diagnoses Diagnosis Other microscopic hematuria- Primary documented in this encounter Additional Health Concerns Assessment Noted Time PHQ-9 Depression Total Score: 6 01/29/20 24 2:09 PM EDT documented as of this encounter Care Teams Care Process Manager Relationship Specialty Start Date End Date Kendra Sosa MD [address] [place] [address] PCP - General Internal Medicine 12/29/17 Hussein Yoon FNP [address] [place] [address] Nurse Practitioner Family Medicine 07/11/23 Kandi Delarosa Pest Control Service Sales AgentMold Chipper 10/12/23 documented as of this encounter
--- OUTSIDE RECORDS SUMMARY | 2025-07-22 19:42 | XMS_ITS | Clinical Summary ---
Author Organization [employer] Address [address] [facility] 7t [place] [address] Care Team Providers Care Conservation Policy Analyst Name Role Phone Kendra Sosa MD Primary Care Provider [phone] Hussein Yoon Unavailable Unavailable Allergies No known [...] Information Patient not taking.Reported on 12/19/2023 nicotine polacrilex (Nicotine Mini) 2 MG lozengeIndicatio ns:Smoking Dissolve 1 lozenge (2 mg) in the mouth if needed for smoking cessation. 100 lozenge 4 Active atorvastatin (Lipitor) 40 MG tabletIndication s:Hypercholester olemia TAKE ONE TABLET EVERY MORNING (CHOLESTEROL) 30 tablet 11 06/24/2025 2:01 PM EST 5 Active losartan-hydroCH LOROthiazide (Hyzaar) 100-12.5 MG tabletIndication s:Primary hypertension TAKE ONE TABLET EVERY MORNING (FOR BLOOD PRESSURE) 90 tablet 3 5 Active sertraline (Zoloft) 100 MG tabletIndication s:Major depressive disorder with psychotic features (CMS/HCC) (HCC) Take 2 tablets (200 mg) by mouth Once per day. 180 tablet 3 5 Active risperiDONE (RisperDAL) 4 MG tabletIndication s:Major depressive disorder with psychotic features (CMS/HCC) (HCC) TAKE ONE TABLET EVERY NIGHT AT BEDTIME 90 tablet 3 5 Active prazosin (Minipress) 5 MG capsuleIndicatio ns:Major depressive disorder with psychotic features (CMS/HCC) (HCC) TAKE THREE CAPSULES EVERY DAY AT BEDTIME 270 capsule 3 5 Active hydrOXYzine HCl (Atarax) 25 MG tabletIndication s:Major depressive disorder with psychotic features (CMS/HCC) (HCC) TAKE TWO TABLETS AT BEDTIME AND TAKE ONE TABLET EVERY 8 HOURS NEEDED FOR [place] pan[place] 270 tablet 3 5 Active busPIRone (Buspar) 15 MG tabletIndication s:Major depressive disorder with psychotic features (CMS/HCC) (HCC) TAKE ONE TABLET THREE TIMES DAILY IN THE MORNING, AT NOON, AND AT BEDTIME (FOR ANXIETY) 270 tablet 3 5 Active Tirzepatide (Mounjaro) 2.5 MG/0.5ML solution auto-injectorInd ications:Class 2 severe obesity due to excess calories with serious comorbidity and body mass index (BMI) of 38.0 to 38.9 in adult Inject 2.5 mg under the skin 1 (one) time per week. 2 mL 2 5 Active Active Problems Problem Noted Date Diagnosed Date Major depressive disorder with psychotic feature s (CMS/HCC) 08/02/2022 Assessment & Plan (01/29/2024 2:58 PM [...] would like to be referred to new [facility] psychiatric prescriber. She is aware these will be televisits, and the provider will not be an employee of [facility]. She gives consent to share PHI. Any issues or concerns, contact [facility]. All her questions were answered and I [...] live as daughter will be moving to [place] and pt does not want to leave [...] we will send her the list of [facility] agencies and CBHCs and she can contact [...] Encounters Date Type Department Care Team Description 05/15/2025 Telephone [facility] [address] [place] [address] Kendra oSsa MD 05/12/2025 9:15 AM EDT Office Visit [facility] [address] [place] [address] Kendra Sosa MD Primary hypertension (Primary Dx); Hypercholesterolemia; Other depression; Class 2 severe obesity due to excess calories with serious comorbidity and body mass index (BMI) of 38.0 to 38.9 in adult; Smoking addiction; Encounter for immunization 05/12/2025 Telephone [facility] [address] [place] [address] Kendra Sosa MD Prior Authorization 05/12/2025 Travel 05/08/2025 Results Follow-Up [facility] [address] [place] [address] iD Martinez, ELOISA Hepatic Function Panel, Urinalysis Complete 05/06/2025 Patient Outreach [facility]IC[facility] [address] [place] [address] Kendra Sosa MD Pre-visit Planning (SDOH screening completed on 08/21/24) 05/05/2025 Orders Only [facility] [address] [place] [address] eKndra Sosa MD Other microscopic hematuria (Primary Dx) from Last 3 Months Immunizations Immunization Administration Dates Next Due Influenza Injectable Quadriv alant Preservative Free IIV4 MDCK 05/05/2022 Influenza, High Dose Seasonal, Preservative Free 05/12/2025 Pfizer Covid-19 Vaccine 12+ 12/15/2020, Tdap 10/01/2019 [...] Sign Reading Time Taken Comments Blood Pressure 157/78 05/12/2025 9:30 AM EDT Pulse 72 05/12/2025 9:30 AM EDT Temperature 36.6 C (97.9 F) 12/19/2024 2:40 PM EDT Respiratory Rate 20 05/12/2025 9:30 AM EDT Oxygen Saturation 97% 05/12/2025 9:30 AM EDT Inhaled Oxygen Concentration - - Weight 84.4 kg (186 lb) 05/12/2025 9:30 AM EDT Height 148.6 cm (4' 10.5 ) 05/12/2025 9:30 AM ED T Body Mass Index 38.21 05/12/2025 9:30 AM EDT Plan of Treatment Health Maintenance Due Date Last Done Comments CT Colonography 1960 FIT DNA/Cologuard 1960 FIT 1960 FOBT 1960 Sigmoidoscopy 1960 Alcohol/Substance Use Screening 08/21/2025 08/21/2024 SDOH Screening 08/21/2025 08/21/2024 Depression Monitoring 11/10/2025 05/12/2025, 025 Pneumococcal Vaccine: 50+ Years (1 of 2 - PCV) 12/19/2025 Postponed from 1978 (Patient Refused) COVID-19 Vaccine ( season) 2026 09/14/2022, 12/15/2020, 11/24/2020 Postponed from 04/07/2025 (Patient Refused) Tobacco Screening 05/12/2026 05/12/2025 Pap Smear 09/05/2026 09/05/2023 Mammogram 01/28/2027 01/28/2025, 01/05, 10/20/2020, Additional history exists Cervical Cancer Screening 09/05/2028 HPV/Cotest 09/05/2028 09/05/2023, 04/10/2018 Colonoscopy 01/24/2029 01/24/2019 Colorectal Cancer Screening 01/24/2029 DTaP/Tdap/Td Vaccines (2 - Td or Tdap) 10/01/2029 10/01/2019 Lipid Panel 12/03/2029 12/03/2024, 08/08, 05/03/2021 RSV Patients and Patients Aged 60 years or older (1 - 1-dose 75+ series) 2034 Zoster Vaccines Completed 12/29/2021, 10/01/2019 Hepatitis C Screening Completed 09/01/2023 Influenza Vaccine Completed 05/12/2025, 05/05/2022 HIB Vaccines Aged Out No longer eligi [...] patient's age to complete this topic Meningococcal B Vaccine Aged Out No l onger eligible based on patient's age to complete [...] PharmD Smoking cessation General No Yemi Mirza, Joaquina Procedures Procedure Name Priority Date/Time Associated Diagnosis Comments URINALYSIS, COMPLETE (INCLUDES MACRO AND MICRO) Routine 05/05/2025 8:10 AM EDT Abnormal liver function test Microscopic hematuria HEPATIC FUNCTION PANEL Routine 8:10 AM EDT Abnormal liver function test BI MAMMOGRAM SCREENING TOMOSYNTHESIS BILATERAL Routine 01/28/2025 8:35 AM EDT LIPID PANEL, STANDARD Routine 12/03/2024 8:13 AM EDT Primary hypertension Hypercholesterolem ia HPV MRNA E6/E7 REFLEX TO HPV 16, 18/45 Routine 09/05/2023 10:48 AM EST Hypercholesterolem ia PAP SMEAR Routine 09/05/2023 10:48 AM EST Cervical cancer screening HEPATITIS C AB W/REFL TO HCV RNA, QN, PCR Routine 09/01/2023 8:16 AM EST Annual physical exam HM COLONOSCOPY Routine 01/24/2019 from Last 3 Months or Most Recently Relevant to Health Maintenance Results * (ABNORMAL) Urinalysis Complete (05/05/2025 8:10 AM EDT) Color Urine Dark Yellow [facility] Appearance Urine Clear [facility] PH 6.0 5.0 - 9.0 [facility] Glucose Urine UA Negative Negative mg/dL [facility] Urine Blood Moderate (2+)(A) Negative [facility] Specific [place] - Urine 1.020 1.005 - 1.025 [facility] Urine Protein Trace Neg-Trace mg/dL [facility] Urine Ketones Negative Negative mg/dL [facility] Nitrite Urine Negative Negative [facility] Leukocyte Esterase Urine Small (1+)(A) Negative [facility] RBC Urine >20(A) 0 - 2 /HPF [facility] Urine WBC 6-10(A) 0 - 5 /HPF [facility] Urine Squamous Epithelial Cell 11-20 0 - 2 /HPF [facility] Urine Bacteria 2+ None Seen [facility] Hyaline Casts, Urine 3-5 0 - 2 /LPF [facility] Urine (Urine, Random) 05/05/2025 8:10 AM EDT 05/05/2025 2:10 PM EDT us Kendra Sosa MD LAB URINE ORDERABLES Final Result [facility] [address] [place] [address] [phone] * Hepatic Function Panel (05/05/2025 8:10 AM EDT) Bilirubin, Total 0.3 0.0 - 1.0 mg/dL [facility] Bilirubin, Direct 0.2 0.0 - 0.5 mg/dL [facility] Aspartate Amino Transferase 25 5 - 31 U/L [facility] Alanine Aminotransferase 26 0 - 31 U/L [facility] Total Protein 7.2 6.5 - 8.0 g/dL [facility] Albumin Level 4.3 3.5 - 5.0 g/dL [facility] Alkaline Phosphatase 114 39 - 117 U/L [facility] Blood Venous blood specimen / Unknown 05/05/2025 8:10 AM EDT 05/05/2025 2:07 PM EDT Kendra Sosa MD LAB BLOOD ORDERABLES Final Result Performing Organization Address City/State/[facility] Co de Phone Number [facility] [address] [place] [phone] * BI Mammogram Screening Tomosynthesis Bilateral (01/28/2025 8:35 AM EDT) Anatomical Region Laterality Modality Breast Bilateral Mammography 01/28/2025 8:35 AM EDT Narrative 01/31/2025 5:36 PM EDT [address] [place] [address] Mammography Report Signed Patient: Dorothea Rutledge MR#: [id number] : 1960 Acct:[id number] Age/Sex: 64 / F ADM Date: 01/28/25 Loc: HO.MAMMO Attending Dr: Kendra Sosa MD Ordering Physician: Kendra Sosa MD Results: 2 Benign Findings Date of Service: 01/28/25 Follow Up: 1 Year From Orig ina Mammogram Procedure(s): MM tomosynthesis screening BI Accession Number(s): [id number] cc: Beauzile,Thevenin C MD EXAMINATION: MM SCREENING DIGITAL BREAST TOMOSYNTHESIS, BILATERAL CLINICAL INFORMATION: Screening. Asymptomatic. COMPARISON: Mammography: Comparison is made with available priors TECHNIQUE: Digital breast mammography with tomosynthesis is performed in both the craniocaudal and mediolateral oblique views along with computer-aided detection (CAD). FINDINGS: The breasts are heterogeneously dense, which may obscure small masses (ACR BI-RADS breast composition Category c). Bilateral scattered asymmetries are stable. There are no significant masses, abnormal calcifications, or other abnormalities. MM/MM tomosynthesis screening BI IMPRESSION: No mammographic evidence of malignancy. ASSESSMENT: BI-RADS BI-RADS 2 - Benign Findings RECOMMENDATION: Routine annual mammography screening. 1 year F/U This examination should not preclude the clinical evaluation of a suspicious palpable abnormality. This patient's information was entered into a reminder system with a target due date for their next mammogram. Electronically signed by: Alyssia Boone DO 01/31/2025 05:33 PM EDT RP Dictated By: Alyssia Boone DO Signed By: <Electronically signed by Alyssia Boone DO in OV> 01/31/25 1733 DD/ 0835 TD/TT: 01/28/25 0859 Night Filler: Procedure Note Donotuseinterpreter, Image - 01/31/2025 [facility] [address] [place] [address] Mammography Report Signed Patient: Coretta Rutledge#: [id number] : 1960Acct:[id number] Age/Sex: 64 / FADM Date: 01/28/25 Loc: HO.MAMMO Attending Dr: Kendra Sosa MD Ordering Physician: Kendra Sosa MDResults: 2 Benign Findings Date of Service: 01/28/25Follow Up: 1 Year From Orig ina Mammogram Procedure(s): MM tomosynthesis screening BI Accession Number(s): [id number] cc: Kendra Sosa MD EXAMINATION: MM SCREENING DIGITAL BREAST TOMOSYNTHESIS, BILATERAL CLINICAL INFORMATION: Screening. Asymptomatic. COMPARISON: Mammography: Comparison is made with available priors TECHNIQUE: Digital breast mammography with tomosynthesis is performed in both the craniocaudal and mediolateral oblique views along with computer-aided detection (CAD). FINDINGS: The breasts are heterogeneously dense, which may obscure small masses (ACR BI-RADS breast composition Category c). Bilateral scattered asymmetries are stable. There are no significant masses, abnormal calcifications, or other abnormalities. MM/MM tomosynthesis screening BI IMPRESSION: No mammographic evidence of malignancy. ASSESSMENT: BI-RADS BI-RADS 2 - Benign Findings RECOMMENDATION: Routine annual mammography screening. 1 year F/U This examination should not preclude the clinical evaluation of a suspicious palpable abnormality. This patient's information was entered into a reminder system with a target due date for their next mammogram. Electronically signed by: Alyssia Boone DO 01/31/2025 05:33 PM EDT RP Dictated By: Alyssia Boone DO Signed By: <Electronically signed by Alyssia Boone DO in OV> 01/31/25 1733 DD/ 0835 TD/TT: 01/28/25 0859 Night Filler: us Kendra Sosa MD IMG BI PROCEDURES Final Res ult * Lipid Panel, Standard (12/03/2024 8:13 AM EDT) Triglycerides 117 <150 mg/dL [facility] Comment:Desirable Triglyceri de: less than 150 mg/dLBorderline High Triglyceride 150-199 mg/dLHigh Triglyceride: 200-499 mg/dLVery High Triglyceride: greater than or equal to 5OO mg/dL Cholesterol 178 <200 mg/dL [facility] Comment:Desirable Cholestero l: less than 200 mg/dLBorderline High Cholesterol: 200-239 mg/dLHigh Cholesterol: greater than 239 mg/dL LDL Cholesterol Calculated 99 <100 mg/dL [facility] Comment:Desirable LDL: less than 100 mg/dLNear Optimal/Above Optimal LDL: 110- 129 mg/dLBorderline High LDL: 130-159 mg/dLHigh LDL: 160-189 mg/dLVery High LDL: greater than or equal to 190 mg/dL HDL Cholesterol 56 >40 mg/dL [facility] Comment:Desirable HDL: great er than 40 mg/dL Note: This HDL assay may give artificially low results in patients with liver disease. Blood Venous blood specimen / Unknown 12/03/2024 8:13 AM EDT 12/03/2024 2:20 PM EDT us Kendra Sosa MD LAB BLOOD ORDERABLES Final Result Performing Organization Address [facility] Co de Phone Number [facility] [address] [place] [address] [phone] * HPV mRNA E6/E7 w/Reflex to HPV Genotypes 16, 18/45 (09/05/2023 10:48 AM EST) HPV nRNA E6/E7 Not Detected Not Detected [facility] Comment:Methodology: Transcr iption-Mediated AmplificationThis assay detects E6/E7 viral messenger RNA (mRNA) from 14high-risk HPV types (16,18,31,33,35,39,45,51,52,56,58,59,66,68).Cervical sources are required for HPV testing.If a vaginal source from a patient who has had atotal hysterectomy with removal of cervix wassubmitted, please contact the testing laboratoryfor alternative testing options.For additional information, please refer [email or web address]/faq/[email or web address](This link if provided for information/educational purposes only.)THIS TEST WAS PERFORMED AT:[employer] [place] [phone] BARNETT MD HPV mRNA E6/E7 [facility] HPV 16 RNA [facility] HPV 18/45 RNA [facility] 09/05/2023 10:4 8 AM EST 09/07/2023 9:50 AM EST us Ivana Abarca CNM LAB CYTOLOGY ORDERABLES F inal Result Performing Organization Address City/[facility]/ZIP Co de Phone Number [facility] [address] [place] [address] [phone] * Pap Smear (09/05/2023 10:48 AM EST) Swab Cervix uteri structure / Unknown 09/05/2023 10:48 AM EST 09/07/2023 9:50 AM EST Narrative [facility] - 09/20/2023 6:58 AM EST ----- ------- Name: Dorothea Rutledge Age/Sex: 62/F : 1960 Unit#: [id number] Attend Dr: IVANA ABARCA CNM Re09/05/23 Status: DEP REF Location: HO.CHCLNP Disch: ----- ------- SPEC : [id number] RECD: 09/07/23-949 STATUS: EZRA EVERETT NUM: [id number] SOHAN: 09/05/23-[address] [facility] [address]: IVANA ABARCA CNM ENTERED: 09/07/23-8 SP TYPE: Pap Smr OT DR: ORDERED: Pap Smear Interpretation Satisfactory for evaluation. No endocervical cells seen. Cytolysis noted. Negative for intraepithelial lesion or malignancy. HPV mRNA E6/E7: NOT DETECTED This assay detects E6/E7 viral messenger RNA (mRNA) from 14 high-risk HPV types (16, 18, 31, 33, 35, 39, 45, 51, 52, 56, 58, 59, 66, 68) HPV testing performed by [employer], [place], [place]. See reference laboratory portion of the EMR for entire report. Clinical Information LMP: Unknown date Previous PAP test: Unknown date/findings Material Received ThinPrep-Cervical ----- ------- Signed (signature on file) DUANE Jeter (ASCP) 09/20/23 0658 ----- ------- END OF REPORT Ivana Abarca [facility] LAB CYTOLOGY ORDERABLES F inal Result [facility] [address] [place] [phone] * Hepatitis C Antibody with Reflex to HCV, RNA, Quantitative, Real-Time PCR (09/01/2023 8:16 AM EST) Hepatitis C Antibody Nonreactive Nonreactive [facility] Comment:Antibodies to HCV no t detected; does not exclude early acuteHCV infection. Blood Venous blood specimen / Unknown 09/01/2023 8:16 AM EST 09/01/2023 2:29 PM EST us Kendra Sosa MD LAB BLOOD ORDERABLES Final Result [facility] [address] [place] [address] [phone] * Colonoscopy (01/24/2019) Colonoscopy Normal Normal Narrative Shasha Queen - 01/24/2019 Recommended 10 year follow up Historical Provider HEALTH MAINTENANCE Edited Result - Final from Last 3 Months or Most Recently Relevant to Health Maintenance Insurance [facility] FDC OPTIONS (O D-SNP) [place] VELASQUEZ [id number] Care Teams Conservation Policy Analyst Relationship Specialty Start Date End Date Kendra Sosa MD [address] [place] [address] PCP - General Internal Medicine 12/29/17 Hussein Yoon FNP [address] [place] [address] LIYA Zimmer [address] Nurse Practitioner Family Medicine 07/11/23 Kandi MaciasIsaura Timber FellerBoot Trimmer 10/12/23
== END 2025-07-22 15:31 | disposition home or self-care (01) ==
LOC: HO.US 15:30
PROVIDERS: PCP Internal Medicine; Visit Provider Internal Medicine
DX: R31.29 Other microscopic hematuria (principal)
CPT/HCPCS: 76775

== ENCOUNTER → 2025-07-22 15:47 | Outpatient (BNV) | payer OTHER, SELFPAY | PROVIDERS: PCP Internal Medicine; Visit Provider Radiology Diagnostic Radiology | DX: N20.0 Calculus of kidney (principal) | CPT/HCPCS: 76775 ==